=== PATIENT | male | born 1940 | race Caucasian/White ===

== ENCOUNTER 2020-03-31 12:37 | Emergency (ER) | payer MEDICARE, SELFPAY ==
--- NOTE | ~2020-03-31 | XR_ITS ---
EXAMINATION: XR abdomen/kub 1V EXAM DATE: 03/31/2020 15:20 INDICATION: Mid back pain. TECHNIQUE: Frontal projection(s) of the abdomen for interpretation. Correlation is made to CT scan sa . FINDINGS: There is expected amount of colonic stool and gas. No small bowel dilation, nonobstructiv e bowel gas pattern. There are no suspicious calcifications identified. There is no organomegaly suspected. There are bony degenerative changes. IMPRESSION: Unremarkable abdomen x-ray exam. Reviewed, dictated and finalized at location A.
--- NOTE | ~2020-03-31 | CT_ITS ---
EXAMINATION: CT abdomen pelvis wo con EXAM DATE: 03/31/2020 15:12 INDICATION: Low back pain, history kidney stones. TECHNIQUE: Spiral CT of the abdomen and pelvis was performed without contrast. Axial, coronal and sag ittal images were reviewed. The dose-length product (DLP) for this examination was 617.20 mGy-cm. T he exposure was tailored according to patient size (auto mA exposure control), and iterative reconstr uction (ASIR) was used as additional dose reduction technique. Comparison is made to prior examinatio n from 04/14/2018. FINDINGS: Possible surgical changes lower pole of the right kidney. There is bilateral renal atrophy. Probable small right nephrolithiasis. No ureteral stones or hydronephrosis. There are scattered bila teral renal cysts and hemorrhagic cysts again noted, largest in lower pole of left kidney 6.5 cm. The re is moderate prostatomegaly. The bladder is unremarkable. The liver, spleen, adrenal glands and pancreas are unremarkable. There are 2 gallstones within an otherwise unremarkable gallbladder. No evidence of obstructive biliary disease. There is no retroperitoneal or pelvic lymphadenopathy. Th ere is mild to moderate scattered arteriosclerotic disease. There are small bilateral inguinal hernia s. The appendix is normal. The stomach and small bowel are unremarkable. There is moderate descending a nd sigmoid colonic diverticulosis. There is no adjacent inflammatory change to suggest diverticuliti s. No free intraperitoneal gas. The heart is normal in size. There are no pericardial or pleural effusions. Bibasilar subsegmental atelectasis. There are no osteoblastic or osteolytic lesions iden tified. IMPRESSION: 1. No acute intra-abdominal findings. 2. Colonic diverticulosis. 3. Moderate prostatomegaly. 4. Small inguinal hernias. 5. Cholelithiasis. 6. Possible small right nephrolithiasis. Reviewed, dictated and finalized at location A.
[2020-03-31 12:46] VITALS: BP 140/71; PULSE 84; RESP 18; TEMP 36.7; O2SAT 99
--- NOTE | 2020-03-31 12:53 | ED.GENADULT ---
HPI - General Adult General Chief complaint: Back Pain/Injury Stated complaint: LOWER BACK PAIN Time Seen by Provider: 03/31/20 12:53 Source: patient and family (daughter) Mode of arrival: ambulatory Limitations: no limitations History of Present Illness HPI narrative: 79-year-old patient with complaint of left lower back pain that started approximately 2 days ago and became quite painful this morning. He denies any history of injury. He does have a history of kidney stones on both sides, and history of renal cancer on right. He denies any urinary symptoms, or fever. Related Data Allergies Allergy/AdvReac Type Severity Reaction Status Date / Time latex Allergy Unknown Verified 04/30/17 20:54 levofloxacin Allergy Unknown Verified 04/30/17 20:54 Review of Systems Review of Systems: All systems reviewed & are unremarkable except as noted in HPI and below PMFSH Past Medical History Medical History (Updated 03/31/20 @ 16:07 by Felicitas Finch PA-C) Renal cancer Social History Social History (Updated 03/31/20 @ 16:04 by Felicitas Finch PA-C) Smoking status: Never smoker Alcohol intake: never Substance use: never Living arrangements: alone Exam Const: General: no acute distress and alert Orientation/consciousness: patient oriented x3 HENMT: Head: normal to inspection Resp: Effort & Inspection: normal respiratory effort Auscultation: clear to auscultation bilaterally Cardio: Rate: regular rate Rhythm: regular rhythm GI: GI Palp: Yes Soft to palpation Auscultation: normal bowel sounds : General: Yes no CVA tenderness Back/Spine/Pelvis: Other: left lower back pain to palpation Skin: General skin exam: normal color Extrem: General: normal to inspection Course Course Emergency Course: CT results reviewed with patient, there is no evidence of renal stones at this time. His labs are abnormal for urinary tract infection. We will treat with Macrobid with recommendation for follow-up UA with primary care physician for test of cure. Vital Signs Vital signs: Vital Signs Temperature 36.7 C 03/31/20 12:46 Pulse Rate 84 03/31/20 12:46 Respiratory Rate 18 03/31/20 12:46 Blood Pressure 140/71 03/31/20 12:46 Pulse Oximetry 99 03/31/20 12:46 Temperature 36.7 C 03/31/20 12:46 Pulse Rate 85 03/31/20 14:53 Respiratory Rate 18 03/31/20 14:53 Blood Pressure 128/67 03/31/20 14:53 Pulse Oximetry 96 03/31/20 14:53 Medical Decision Making Vital Signs Vital Signs: Vital Signs Temperature 36.7 C 03/31/20 12:46 Pulse Rate 84 03/31/20 12:46 Respiratory Rate 18 03/31/20 12:46 Blood Pressure 140/71 03/31/20 12:46 Pulse Oximetry 99 03/31/20 12:46 Temperature 36.7 C 03/31/20 12:46 Pulse Rate 85 03/31/20 14:53 Respiratory Rate 18 03/31/20 14:53 Blood Pressure 128/67 03/31/20 14:53 Pulse Oximetry 96 03/31/20 14:53 Lab Data Result diagrams: 03/31/20 14:04 03/31/20 14:04 Labs: Lab Results 03/31/20 03/31/20 03/31/20 Range/Units 14:04 14:04 14:31 WBC 7.8 (4.5-10.0) K/mm3 RBC 4.89 (4.6-6.20) M/mm3 Hgb 15.0 (14.0-18.0) g/dL Hct 44.9 (42.0-52.0) % MCV 91.8 (80-100) fl MCH 30.7 (26-34) pg MCHC 33.4 (32-36) g/dl RDW 13.3 (11.5-14.5) % Plt Count 181 (150-375) k/mm3 MPV 10.4 (7.4-10.4) fl Immature Gran % (Auto) 0.4 (0-0.5) % Neut % (Auto) 63.2 (45.5-73.1) % Lymph % (Auto) 24.9 (18.3-44.2) % [place] % (Auto) 6.0 (2.6-8.5) % Eos % (Auto) 4.7 H (0-4.4) % Baso % (Auto) 0.8 (0.2-1.2) % Lymph # (Auto) 1.95 (0.9-3.2) K/mm3 [place] # (Auto) 0.5 (0.1-0.6) K/mm3 Eos # (Auto) 0.4 H (0-0.3) K/mm3 Baso # (Auto) 0.1 (0.0-0.1) K/mm3 Abs Immat Gran (auto) 0.03 (0.00-0.031) K/mm3 Absolute Neuts (auto) 5.0 (1.3-6.7) K/mm3 Absolute Nucleated RBC 0.0 (0.0-0.012) K/mm3 Nucleated RBC % 0.0 (0.0-0.2) % [place]
[2020-03-31 14:13] LABS: Basophils Absolute Auto 0.1 K/mm3 (0.0-0.1); Basophils Percent Auto 0.8 % (0.2-1.2); Eosinophils Absolute Auto 0.4 K/mm3 (0-0.3); Eosinophils Percent Auto 4.7 % (0-4.4); Hematocrit 44.9 % (42.0-52.0); Immature Granulocyte Absolute 0.03 K/mm3 (0.00-0.031); Immature Granulocyte Percent A 0.4 % (0-0.5); Lymphocytes Absolute Auto 1.95 K/mm3 (0.9-3.2); Lymphocytes Percent Auto 24.9 % (18.3-44.2); Mean Corpuscular HGB Conc 33.4 g/dl (32-36); Mean Corpuscular Hemoglobin 30.7 pg (26-34); Mean Corpuscular Volume 91.8 fl (80-100); Mean Platelet Volume 10.4 fl (7.4-10.4); Monocytes Absolute Auto 0.5 K/mm3 (0.1-0.6); Neutrophils Percent Auto 63.2 % (45.5-73.1); Platelet Count Result 181 k/mm3 (150-375); Red Blood Count 4.89 M/mm3 (4.6-6.20); Red Cell Distribution Width 13.3 % (11.5-14.5); White Blood Count 7.8 K/mm3 (4.5-10.0)
[2020-03-31 14:27] LABS: Anion Gap 9 mmol/L (8-16); Blood Urea Nitrogen 21 mg/dL (9-20); Calcium 9.5 mg/dL (8.4-10.2); Carbon Dioxide 27 mmol/L (22-30); Chloride 106 mmol/L (98-107); Estimated CRCL calculation 51 ml/min; Estimated Glomerular Filt Rate 53; Glucose 99 mg/dL (75-110); Potassium 3.7 mmol/L (3.4-5.0); Sodium 142 mmol/L (137-145)
[2020-03-31 14:44] LABS: Add Urine Microscopic? YES; Appearance Urine Clear (Clear); Bacteria Urine Trace /hpf; Bilirubin Urine Negative (Negative); Color Urine Yellow (Yellow); Glucose Urine UA Negative (Negative); Ketones Urine Negative (Negative); Leukocyte Esterase Ur 2+ LEU/UL (Negative); Nitrate Urine Positive (Negative); Protein Urine Negative (Negative); Specific Grav Ur 1.013 (1.001-1.035); Squamous Epithelial Cell Urine Rare /hpf (Few); Urobilinogen Urine Negative mg/dL (<2.0); WBC Urine 31-50 /hpf
[2020-03-31 14:53] VITALS: BP 128/67; PULSE 85; RESP 18; O2SAT 96
[2020-03-31 14:54] LABS: Blood Urine Negative (Negative)
[2020-03-31 16:27] VITALS: BP 127/76; PULSE 87; RESP 18; O2SAT 98
== END 2020-03-31 16:29 | disposition home or self-care (01) ==
PROVIDERS: Physician Assistant; Emergency Provider Emergency Medicine; PCP Internal Medicine
DX: N39.0 Urinary tract infection, site not specified (principal); Z85.528 Personal history of other malignant neoplasm of kidney
CPT/HCPCS: 36415; 74018; 74176; 80048; 81001; 85025; 87077; 87086; 87088; 87186; 99284

== ENCOUNTER 2020-06-18 16:26 | Outpatient (CLI) | payer MEDICARE, SELFPAY ==
--- NOTE | ~2020-06-18 | XR_ITS ---
EXAMINATION: XR chest 2V DATE: 06/18/2020 16:57 INDICATION: Malignant neoplasm of right kidney, except renal pelvis. TECHNIQUE: Frontal and lateral views of the chest were obtained. COMPARISON: Chest 2 views 04/19/2018, CT abdomen and pelvis 06/18/2020 FINDINGS: There is mild atelectasis in the lower lung zones. No pleural effusion or pneumothorax. The heart size is normal. There are surgical clips in right axilla and in the neck. IMPRESSION: 1. No evidence of metastatic disease. Reviewed, dictated and finalized at location A.
--- NOTE | ~2020-06-18 | CT_ITS ---
EXAMINATION: CT abdomen pelvis wo con DATE: 06/18/2020 16:52 INDICATION: History of renal cell carcinoma. Status post partial nephrectomy. TECHNIQUE: Computed tomography (CT) of the abdomen and pelvis was performed without intravenous contr ast. The dose-length product was 1323.09 mGy-cm. Automated exposure control and iterative reconstruct ion technique were employed. COMPARISON: Comparison to multiple prior studies sequentially, with oldest reviewed study dated 10/2016. . FINDINGS: There is chronic right lower lobe atelectasis/scarring. Borderline heart size. No pulmonary nodules or masses. There is atherosclerosis. There are multiple bilateral renal cysts, largest in th e left kidney measuring 6.7 cm. Status post partial right nephrectomy. There are nonobstructing right renal stones. Enlarged prostate gland. The liver, spleen, pancreas, adrenal glands are unremarkable. There is atherosclerosis without aneury sm. No lymphadenopathy identified. No free air or free fluid. There is atrophy of the right lower rec tus muscles. Mild-moderate lumbar spondylosis. No osteolytic or osteoblastic lesions. IMPRESSION: 1. No evidence for residual/recurrent neoplasm post partial right nephrectomy. Multiple bilateral low -density lesions in the kidneys, most likely benign cysts, although evaluation limited without contra st. 2: Cholelithiasis. 3: Nonobstructing right nephrolithiasis. Reviewed, dictated and finalized at location A. IMPRESSION: 1. No evidence for residual/recurrent neoplasm post partial right nephrectomy. Multiple bilateral low-density lesions in the kidneys, most likely benign cysts , although evaluation limited without contrast. 2: Cholelithiasis. 3: Nonobstructing right nephrolithiasis.
== END 2020-06-18 16:27 | disposition home or self-care (01) ==
PROVIDERS: PCP Internal Medicine; Visit Provider Nurse Practitioner Adult Health
DX: C64.1 Malignant neoplasm of right kidney, except renal pelvis (principal); K80.20 Calculus of gallbladder without cholecystitis without obstruction; N20.0 Calculus of kidney
CPT/HCPCS: 71046; 74176

== ENCOUNTER 2021-10-03 13:53 | Outpatient (CLI) | payer MEDICARE, SELFPAY ==
--- NOTE | ~2021-10-03 | US_ITS ---
EXAMINATION: US arterial ankle brachial ind DATE: 10/03/2021 14:57 INDICATION: Bilateral lower extremity pain TECHNIQUE: Segmental pressures and plethysmographic and Doppler waveforms of the brachial and lower e xtremity arteries were obtained. COMPARISON: None. FINDINGS: Left brachial artery pressure of 132 mm Hg (The technologist did not perform the right brachial arter y measurement.). The right ankle-brachial index (DAVID) is 1.14 (normal >= 0.9-1.0). The right great toe-brachial index (TBI) is 0.92 (normal >= 0.65). Arterial Doppler waveforms are biphasic at the right posterior tibial artery and triphasic at the right dorsalis pedis artery. The left DAVID is 1.19. The left TBI is 0.95. Arterial Doppler waveforms are triphasic. IMPRESSION: Normal DAVID and TBI bilaterally Reviewed, dictated and finalized at Location A. Reviewed, dictated and finalized at location A. [facility] [employer]
== END 2021-10-03 13:54 | disposition home or self-care (01) ==
PROVIDERS: PCP Internal Medicine; Visit Provider Internal Medicine
DX: M79.604 Pain in right leg (principal); M79.605 Pain in left leg; Z51.81 Encounter for therapeutic drug level monitoring; Z79.899 Other long term (current) drug therapy; M79.662 Pain in left lower leg; M79.661 Pain in right lower leg
CPT/HCPCS: 93922

== ENCOUNTER 2021-12-02 09:57 | Emergency (ER) | payer MEDICARE, SELFPAY ==
--- NOTE | ~2021-12-02 | CT_ITS ---
EXAMINATION: CT abdomen pelvis w con INDICATION: Right flank pain, elevated lipase, history of kidney and breast cancer TECHNIQUE: Computed tomographic images of the abdomen and pelvis were obtained after the administrati on of 100 cc of Omnipaque 350 intravenous contrast. The dose-length product (DLP) was 1542.72 mGy-cm. Automated exposure control and iterative reconstruction technique were employed. COMPARISON: 06/18/2020 FINDINGS: Minimal dependent atelectasis is present in the lung bases. The heart size is normal. Stone s are present in the nondistended gallbladder. The liver, spleen, pancreas, and adrenal glands are no rmal. Cysts of the kidneys measure up to 7.5 cm on the left. Nonobstructing stones of the right kidne y measure up to 5 mm. There are no stones of the ureters or bladder. There is no hydronephrosis or hy droureter. There is calcified atherosclerosis of the aorta and many of the other arteries. No patholo gically enlarged abdominal or pelvic lymph nodes are identified. There is no free intraperitoneal gas or evidence of bowel obstruction. The appendix is normal. There are fat-containing inguinal hernias. Colonic diverticulosis is present without evidence of diverticulitis. There is severe lumbar spondyl osis. IMPRESSION: 1. Nonobstructing right nephrolithiasis. 2. Cholelithiasis without evidence of cholecystitis. Reviewed, dictated and finalized at location A.
[2021-12-02 11:17] VITALS: BP 151/75; PULSE 75; RESP 20; TEMP 37; O2SAT 100
[2021-12-02 12:16] LABS: Appearance Urine Clear (Clear); Bilirubin Urine Negative (Negative); Color Urine Yellow (Yellow); Glucose Urine UA Negative (Negative); Ketones Urine Negative (Negative); Leukocyte Esterase Ur Negative LEU/UL (Negative); Nitrate Urine Negative (Negative); Protein Urine Negative (Negative); Urobilinogen Urine 0.2 mg/dL (<2.0)
[2021-12-02 12:26] LABS: Squamous Epithelial Cell Urine Rare /hpf (Few); WBC Urine 0-3 /hpf
--- NOTE | 2021-12-02 12:35 | ED.BACK ---
HPI - Back Pain/Injury General Chief Complaint: Back Pain/Injury Stated Complaint: back pain Time Seen by Provider: 12/02/21 12:00 Source: patient and RN notes reviewed Mode of arrival: ambulatory Limitations: no limitations History of Present Illness HPI Narrative: This is an 81 year old male who presents for evaluation of right flank pain. He has been having intermittent sharp pain for 1 week. His pain is located right mid back . He states he will have sharp pain that is short duration and it will occur every 5 minutes. He denies having pain currently, and he last had pain in the waiting room. He states he is unsure if his pain is due to kidney stone or UTI. He reports history of renal cancer and kidney stones, but his pain feels different. He denies associated nausea, vomiting, fever, chills, hematuria, urinary frequency or dysuria. He has been taking Tylenol every 8 hours for his pain. He denies leg weakness, numbness or tingling. Related Data Allergies Allergy/AdvReac Type Severity Reaction Status Date / Time latex Allergy Unknown Verified 04/30/17 20:54 levofloxacin Allergy Unknown Verified 04/30/17 20:54 Review of Systems Review of Systems: All systems reviewed & are unremarkable except as noted in HPI and below PMFSH Past Medical History Medical History (Updated 12/02/21 @ 14:55 by Michelle Verma MD) Breast cancer, male Kidney stone Renal cancer Surgical History Surgical History (Updated 12/02/21 @ 12:38 by Michelle Verma MD) H/O mastectomy H/O partial nephrectomy Social History Social History (Updated 03/31/20 @ 16:04 by Felicitas Finch PA-C) Smoking status: Never smoker Alcohol intake: never Substance use: never Exam Const: General: no acute distress and alert Orientation/consciousness: patient oriented x3 HENMT: Head: normocephalic and atraumatic Eyes: EOM: EOMs intact bilaterally Chest: Chest palpation & inspection: normal inspection of the chest Resp: Effort & Inspection: normal respiratory effort and no retractions Auscultation: clear to auscultation bilaterally Cardio: Rate: regular rate Rhythm: regular rhythm Heart sounds: no murmurs GI: GI Palp: Yes Soft to palpation, No Tenderness to palpation present (GI), No Guarding due to palpation present (GI), No Rigid due to palpation and No Hernia present Auscultation: normal bowel sounds Back/Spine/Pelvis: Back: no CVA tenderness Skin: General skin exam: normal color Rashes: no rashes Neuro: General: patient oriented x3 and moves all extremities Extrem: General: normal to inspection Psych: Mental Status: mental status grossly normal Affect: normal affect Course Reevaluation(s) Reevaluation #1: I discussed CT with patient. no pancreatitis on CT and he is not having any pain. He will be discharged with follow up with PCP Date: 12/02/21 Time: 14:53 Vital Signs Vital signs: Vital Signs Temperature 98.6 F 12/02/21 11:17 Pulse Rate 75 12/02/21 11:17 Respiratory Rate 20 12/02/21 11:17 Blood Pressure 151/75 H 12/02/21 11:17 Pulse Oximetry 100 12/02/21 11:17 Temperature 98.9 F 12/02/21 14:24 Pulse Rate 78 12/02/21 15:05 Respiratory Rate 18 12/02/21 15:05 Blood Pressure 142/98 H 12/02/21 15:05 Pulse Oximetry 98 12/02/21 15:05 MDM - Back Pain/Injury Medical Records Attestation: I reviewed the patient's medical records. Lab Data Attestation: I reviewed the patient's lab results. Result diagrams: 12/02/21 12:37 12/02/21 12:37 Labs: Lab Results 12/02/21 12/02/21 12/02/21 Range/Units 12:03 12:37 12:37 WBC 7.9 (4.5-10.0) K/mm3 RBC 4.84 (4.6-6.20) M/mm3 Hgb 15.1 (14.0-18.0) g/dL Hct 46.6 (42.0-52.0) % MCV 96.3 (80-100) fl MCH 31.2 (26-34) pg MCHC 32.4 (32-36) g/dl RDW 13.9 (11.5-14.5) % Plt Count 160 (150-375) k/mm3 MPV 9.7 (7.4-10.4) fl Immature Gran % (Auto) 0.5 (0-0.5) %
[2021-12-02 12:40] LABS: Add Urine Microscopic? YES; Blood Urine Trace-Intact (Negative)
[2021-12-02 12:44] LABS: Basophils Absolute Auto 0.1 K/mm3 (0.0-0.1); Basophils Percent Auto 1.4 % (0.2-1.2); Eosinophils Absolute Auto 0.2 K/mm3 (0-0.3); Eosinophils Percent Auto 2.5 % (0-4.4); Hematocrit 46.6 % (42.0-52.0); Hemoglobin 15.1 g/dL (14.0-18.0); Immature Granulocyte Absolute 0.04 K/mm3 (0.00-0.031); Immature Granulocyte Percent A 0.5 % (0-0.5); Lymphocytes Percent Auto 20.3 % (18.3-44.2); Mean Corpuscular HGB Conc 32.4 g/dl (32-36); Mean Corpuscular Hemoglobin 31.2 pg (26-34); Mean Corpuscular Volume 96.3 fl (80-100); Mean Platelet Volume 9.7 fl (7.4-10.4); Monocytes Absolute Auto 0.5 K/mm3 (0.1-0.6); Monocytes Percent Auto 6.5 % (2.6-8.5); Neutrophils Absolute Auto 5.4 K/mm3 (1.3-6.7); Neutrophils Percent Auto 68.8 % (45.5-73.1); Platelet Count Result 160 k/mm3 (150-375); Red Blood Count 4.84 M/mm3 (4.6-6.20); Red Cell Distribution Width 13.9 % (11.5-14.5); White Blood Count 7.9 K/mm3 (4.5-10.0)
[2021-12-02 12:56] LABS: Alanine Aminotransferase 49 U/L (4-50); Albumin Level 4.8 g/dL (3.5-5.1); Alkaline Phosphatase 54 U/L (38-126); Anion Gap 13 mmol/L (8-16); Aspartate Amino Transferase 101 U/L (17-59); Bilirubin,Total 0.5 mg/dL (0.2-1.3); Blood Urea Nitrogen 19 mg/dL (9-20); Calcium 9.8 mg/dL (8.4-10.2); Carbon Dioxide 25 mmol/L (22-30); Chloride 105 mmol/L (98-107); Estimated CRCL calculation 54 ml/min; Estimated Glomerular Filt Rate > 60; Glucose 137 mg/dL (65-110); Lipase 969 U/L (23-300); Potassium 3.6 mmol/L (3.4-5.0); Sodium 143 mmol/L (137-145)
--- NOTE | 2021-12-02 13:45 | PC.NURSE ---
PT to CT Via stretcher.
[2021-12-02 14:24] VITALS: BP 132/69; PULSE 82; RESP 18; TEMP 37.2; O2SAT 97
[2021-12-02 15:05] VITALS: BP 142/98; PULSE 78; RESP 18; O2SAT 98
== END 2021-12-02 15:05 | disposition home or self-care (01) ==
PROVIDERS: Emergency Medicine; Emergency Provider General Practice; PCP Internal Medicine
DX: N20.0 Calculus of kidney (principal); K80.20 Calculus of gallbladder without cholecystitis without obstruction; Z85.3 Personal history of malignant neoplasm of breast; Z85.528 Personal history of other malignant neoplasm of kidney; Z87.442 Personal history of urinary calculi; Z90.5 Acquired absence of kidney; Z90.10 Acquired absence of unspecified breast and nipple
CPT/HCPCS: 36415; 74177; 80053; 81001; 83690; 85025; 99284; Q9967

== ENCOUNTER 2025-01-30 11:20 | Outpatient (CLI) | payer MEDICARE, SELFPAY ==
--- NOTE | ~2025-01-30 | XR_ITS ---
XR toe 1st RT min 2V Ordering provider: Sherman Garcia, History: . PAIN IN RT TOE 1 WEEK . Comparison: None. FINDINGS: BONES: No acute fracture or dislocation. JOINT SPACES: Mild osteoarthritic changes of the first metatarsophalangeal joint and interphalangeal joint. SOFT TISSUES: Normal. IMPRESSION: No acute osseous abnormality. 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 Reviewed, dictated and finalized at location A. IMPRESSION: No acute osseous abnormality. Osteoarthritic changes of the first metatarsophalangeal joint and interphalange al joint.
--- OUTSIDE RECORDS SUMMARY | 2025-01-30 12:58 | XMS_ITS | Clinical Summary ---
Author Organization [facility] Thelma hernandez Address [address], [place] [address] Phone Care Team Providers Care Flask Cleaner Name Role Phone Unavailable Primary Care Provider Unavailabl e Medications triamterene-hydr oCHLOROthiazide (MAXZIDE-25) 37.5-25 MG per tablet 1 daily 0 03/26/2017 Active amLODIPine (NORVASC) 10 MG tablet 1 daily 0 03/26/2017 Active levothyroxine (SYNTHROID, LEVOTHROID) 125 MCG tablet 1 daily 0 03/26/2017 Active tamsulosin (FLOMAX) 0.4 MG 24 hr capsule 1 daily 0 03/26/2017 Activ e sulfamethoxazole -trimethoprim (BACTRIM DS) 800-160 MG per tablet 1 bid 0 03/26/2017 Active enalapril (VASOTEC) 20 MG tablet 1 bid 0 03/26/2017 Active lovastatin (MEVACOR) 40 MG tablet 1 daily 0 03/26/2017 Active finasteride (PROSCAR) 5 MG tablet 1 daily 0 03/26/2017 Active Active Problems Problem Noted Date Diagnosed Date Acute kidney failure 03/30/2017 Essential (primary) hypertension 03/30/2017 Calculus of kidney 03/30/2017 Family History Medical History Relation Comments Malignant neoplastic disease Father Malignant neoplastic disease Mother Kidney disease Neg Hx Kidney stone Neg Hx Relation Status Comments Father Mother Social History Tobacco Use Types Packs/Day Years Used Date Smoking Tobacco: Never Alcohol Use Standard Drinks/Week Comments No 0 (1 standard drink = 0.6 oz pur e alcohol) Sex and Gender Information Value Date Recorded Sex Assigned at Not on file Legal Sex Male 9:38 AM MST Gender Identity Not on file Sexual Orientation Not on file Last Filed Vital Signs Vital Sign Reading Time Taken Comments Blood Pressure 120/64 03/30/2017 12:01 AM CDT Pulse 84 03/30/2017 12:01 AM CDT Temperature - - Respiratory Rate - - Oxygen Saturation - - Inhaled Oxygen Concentration - - Weight 110 kg (242 lb) 03/30/2017 12:01 AM CDT Height 172.7 cm (5' 8) 03/30/2017 12:01 AM CDT Body Mass Index 36.8 03/30/2017 12:01 AM CDT Plan of Treatment Not on file
--- OUTSIDE RECORDS SUMMARY | 2025-01-30 12:58 | XMS_ITS | CONTINUITY OF CARE DOCUMENT ---
Author Name jaquelinejaqueline Address Unknown Organization [facility] Address [address] [place] [address] Phone [phone] Care Team Providers Care Wool Washer Feeder Name Role Phone Amanda CALIX, Alberto Unavailable NIDHI CALIX, PRATIMA Unavailable SANDRINE CALIX, SHINE Brady Unavailable INSURANCE PROVIDERS Payer name Policy type / Coverage type [employer] party ID U[employer] MEDICARE COMPLETE POS HMO Other [id number]
--- OUTSIDE RECORDS SUMMARY | 2025-01-30 12:58 | XMS_ITS | Data Portability ---
[facility] [address] [facility] [place] [address] Care Team Providers Care Pad Tufter Name Role Phone SHINE GARCIA Primary Care Provider Assessment Encounter Date Assessment Date Assessment LastModified by Organization Details LastModified Time 12/03/2023 12/03/2023 Problems and the assessment and plan have been discussed one by one clinically his problems appear to be stable he says he does have a work not too recently had previous clinic so we will get those records I will see him back in 4 months continue current therapy he is not sure of all immunizations and screenings but we will have the chart reviewed when it comes over all questions answered to patient's satisfaction see me in 4 months [email or web address] Not available 12/21/2023 21:11:55 03/31/2024 03/31/2024 continue current therapy blood work has been ordered healthy lifestyle care instructions have been explained follow up in 4 months Not available 04/10/2024 15:30:19 08/04/2024 08/04/2024 healthy lifestyle care instructions try to lose a little bit of weight. blood work will be ascertained . He will follow up in 4 months [email or web address] Not available 08/29/2024 21:21:43 12/08/2024 12/08/2024 Overall he has been doing fine healthy lifestyle care instructions continue current therapy diagnosis have been discussed medications have been discussed follow up with me in 4 months [email or web address] Not available 12/10/2024 22:45:46 Plan of Treatment Reminders Order Date Submit Date Provider Last Modified By Organization Details Last Modified Time Details Appointments ANY 15 2024 10:30A M Shine Garcia MD Not available Not available Not available ANY 15 2024 10:30A Sathya Garcia MD Not available Not available Not available Lab unlisted lab - T4, free 2023 024 FELIX Avendano, [address], [place], [address], 09/06/2024 07:07:38 T3, free, serum or plasma 2023 024 FELIX Avendano, [address], [place], [address], 09/06/2024 07:07:43 TSH, ultra-sen sitive, serum 2023 024 FELIXOSVALDO Avendano, [address], [place], [address], 09/06/2024 07:07:40 lipid panel, serum 2023 024 FELIX Avendano, [address], [place], [address], 09/06/2024 07:07:36 CMP, serum or plasma 2023 024 FELIXOSVALDO Avendano, [address], [place], [address], 09/06/2024 07:07:39 CBC w/ auto diff 2023 024 FELIX Avendano, [address], [place], [address], 09/06/2024 07:07:41 PSA, total, serum or plasma 2023 024 FELIX Avendano, [address], [place], [address], 03/31/2024 20:56:16 HbA1c (hemoglob in A1c), blood 2023 024 [email or web address] [facility], [address], [place], [address], 04/21/2024 14:51:50 CBC w/ auto diff 2023 [facility], [address], [place], [address], 03/31/2024 20:56:16 lipid panel, serum 2023 024 [facility], [address], [place], [address], 03/31/2024 20:56:16 CMP, serum or plasma 2023 [facility], [address], [place], [address], 03/31/2024 20:56:16 unlisted lab - T4, free 2023 [email or web address], [address], [place], [address], 04/21/2024 14:51:50 T3, free, serum or plasma 2023 [email or web address], [address], [place], [address], 04/21/2024 14:51:50 TSH, ultra-sen sitive, serum 2023 [email or web address], [address], [place], [address], 04/21/2024 14:51:50 Referral None recorded. Procedures None recorded. Surgeries None recorded. Imaging None recorded. Medication Orders None recorded. Patient TargetsNo targets recorded. 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 1 potas sium Not Available Not Available 12/26/2024 18:21:11 03/31/20 24 03/31/2024 Compr ehens peter metab olic 2000 panel - Serum or Plasm a chloride text: 98-107 high chlor lydia Not Available Not Available 12/26/2024 18:21:11 03/31/20 24 03/31/2024 Compr ehens peter metab olic 2000 panel - Serum or Plasm a carbon dioxide text: 22-30 carbo n dioxi de Not Available Not Available 12/26/2024 18:21:11 03/31/20 24 03/31/2024 Compr ehens peter metab olic 2000 panel - Serum or Plasm a anion gap text: 14-22 low anion gap Not Available Not Available 12/26/2024 18:21:11 03/31/20 24 03/31/2024 Compr ehens peter metab olic 2000 panel - Serum or Plasm a glucose text: 70-99 gluco se Not Available Not Available 12/26/2024 18:21:11 03/31/20 24 03/31/2024 Compr ehens peter metab olic 2000 panel - Serum or Plasm a BUN text: 8-19 high BUN Not Available Not Available 12/26/2024 18:21:11 03/31/20 24 03/31/2024 Compr ehens peter metab olic 2000 panel - Serum or Plasm a creatinine text: 0.66-1 .25 creat inine Not Available Not Available 12/26/2024 18:21:11 03/31/20 24 03/31/2024 Compr ehens peter metab olic 2000 panel - Serum or Plasm a GFR >60 GFR Not Available Not Availa ble 12/26/2024 18:21:11 03/31/20 24 03/31/2024 Compr ehens peter metab olic 2000 panel - Serum or Plasm a alkaline phosphatase text: 38-126 alkal ine phosp hatas e Not Available Not Available 12/26/2024 18:21:11 03/31/20 24 03/31/2024 Compr ehens peter metab olic 2000 panel - Serum or Plasm a alanine aminotransfe rase text: 0-50 padmini ne amino trans feras e Not Available Not Available 12/26/2024 18:21:11 03/31/20 24 03/31/2024 Compr ehens peter metab olic 2000 panel - Serum or Plasm a aspartate aminotransfe rase text: 15-46 high aspar quigley amino trans feras e Not Available Not Available 12/26/2024 18:21:11 03/31/20 24 03/31/2024 Compr ehens peter metab olic 2000 panel - Serum or Plasm a bilirubin, total text: 0.20-1 .30 bilir ubin, total Not Available Not Available 12/26/2024 18:21:11 03/31/20 24 03/31/2024 Compr ehens peter metab olic 2000 panel - Serum or Plasm a calcium text: 8.4-10 .2 calci um Not Available Not Available 12/26/2024 18:21:11 03/31/20 24 03/31/2024 Compr ehens peter metab olic 2000 panel - Serum or Plasm a total protein text: 6.3-8. 2 total prote in Not Available Not Available 12/26/2024 18:21:11 03/31/20 24 03/31/2024 Compr ehens peter metab olic 2000 panel - Serum or Plasm a albumin text: 3.0-4. 4 album in Not Available Not Available 12/26/2024 18:21:11 03/31/20 24 03/31/2024 Compr ehens peter metab olic 1999 panel - Serum or Plasm a globulin text: 2.6-4. 2 globu juliette Not Available Not Available 12/26/2024 18:21:11 03/31/20 24 03/31/2024 Compr ehens peter metab olic 2000 panel - Serum or Plasm a A/G ratio text: 1.0-2. 0 A/G ratio Not Available Not Available 12/26/2024 18:21:11 03/31/20 24 03/31/2024 Lipid 1995 panel - Serum or Plasm a cholesterol text: 140-19 9 emelina stero l Not Available Not Available 12/26/2024 18:21:11 03/31/20 24 03/31/2024 Lipid 1995 panel - Serum or Plasm a triglyceride s text: 0-150 high trigl yceri bulmaro Not Available Not Available 12/26/2024 18:21:11 03/31/20 24 03/31/2024 Lipid 1996 panel - Serum or Plasm a HDL cholesterol text: 40- low HDL emelina stero l Not Available Not Available 12/26/2024 18:21:11 03/31/20 24 03/31/2024 Lipid 1996 panel - Serum or Plasm a LDL cholesterol, calculated text: 0-130 LDL emelina stero l, calcu lated Not Available Not Available 12/26/2024 18:21:11 03/31/20 24 03/31/2024 Hemog lobin A1c/H emogl obin. total in Blood by HPLC hemoglobin A1C/hemoglob in.total in blood text: 4.0-6. 0 HA1C Not Available Not Available 12/26/2024 18:21:11 03/31/20 24 03/31/2024 Prost ate speci fic Ag [Mass /volu me] in Serum or Plasm a PSA medicare screen text: 0.00-4 .00 PSA medic are scree n Not Available Not Available 12/26/2024 18:21:11 03/31/20 24 03/31/2024 Thyro tropi n [Unit s/vol ume] in Serum or Plasm a thyroid-stim ulating hormone text: 0.465- 4.680 thyro id-st imula ting hormo ne Not Available Not Available 12/26/2024 18:21:11 03/31/20 24 03/31/2024 Triio dothy finn e (T3) Free [Mass /volu me] in Serum or Plasm a free T3 text: 2.77-5 .27 low free T3 Not Available Not Available 12/26/2024 18:21:11 03/31/20 24 03/31/2024 Thyro xine (T4) free [Mass /volu me] in Serum or Plasm a free T4 text: 0.78-2 .19 free T4 Not Available Not Available 12/26/2024 18:21:11 03/31/20 24 03/31/2024 CBC W Auto Diffe renti al panel - Blood white blood cells text: 4.2-10 .8 white blood cells Not Available Not Available 12/26/2024 18:21:10 03/31/20 24 03/31/2024 CBC W Auto Diffe renti al panel - Blood red blood cells text: 4.10-5 .80 red blood cells Not Available Not Available 12/26/2024 18:21:10 03/31/20 24 03/31/2024 CBC W Auto Diffe renti al panel - Blood hemoglobin text: 13.2-1 7.0 hemog lobin Not Available Not Available 12/26/2024 18:21:10 03/31/20 24 03/31/2024 CBC W Auto Diffe renti al panel - Blood hematocrit text: 39.3-5 0.0 hemat ocrit Not Available Not Available 12/26/2024 18:21:10 03/31/20 24 03/31/2024 CBC W Auto Diffe renti al panel - Blood mean red cell volume text: 80.0-9 7.0 mean red cell volum e Not Available Not Available 12/26/2024 18:21:10 03/31/20 24 03/31/2024 CBC W Auto Diffe renti al panel - Blood mean red cell hemoglobin text: 27.0-3 3.0 mean red cell hemog lobin Not Available Not Available 12/26/2024 18:21:10 03/31/20 24 03/31/2024 CBC W Auto Diffe renti al panel - Blood mean RBC HGB concentratio n text: 31.0-3 6.0 mean RBC HGB leopoldo ntrat ion Not Available Not Available 12/26/2024 18:21:10 03/31/20 24 03/31/2024 CBC W Auto Diffe renti al panel - Blood red cell distribution width text: 11.8-1 5.5 red cell distr ibuti on width Not Available Not Available 12/26/2024 18:21:10 03/31/20 24 03/31/2024 CBC W Auto Diffe renti al panel - Blood platelets text: 150-40 0 plate lets Not Available Not Available 12/26/2024 18:21:10 03/31/20 24 03/31/2024 CBC W Auto Diffe renti al panel - Blood mean platelet volume text: 9.0-12 .4 mean plate let volum e Not Available Not Available 12/26/2024 18:21:10 03/31/20 24 03/31/2024 CBC W Auto Diffe renti al panel - Blood neutrophils text: 39.0-7 2.0 neutr ophil s Not Available Not Available 12/26/2024 18:21:10 03/31/20 24 03/31/2024 CBC W Auto Diffe renti al panel - Blood lymphocytes text: 16.0-4 7.0 lymph ocyte s Not Available Not Available 12/26/2024 18:21:10 03/31/20 24 03/31/2024 CBC W Auto Diffe renti al panel - Blood monocytes text: 5.0-12 .0 monoc ytes Not Available Not Available 12/26/2024 18:21:10 03/31/20 24 03/31/2024 CBC W Auto Diffe renti al panel - Blood eosinophils text: 1.0-7. 0 eosin ophil s Not Available Not Available 12/26/2024 18:21:10 03/31/20 24 03/31/2024 CBC W Auto Diffe renti al panel - Blood basophils text: 0.0-2. 0 basop hils Not Available Not Available 12/26/2024 18:21:10 03/31/20 24 03/31/2024 CBC W Auto Diffe renti al panel - Blood immature granulocytes text: 0.00-0 .50 high immat ure granu locyt es Not Available Not Available 12/26/2024 18:21:10 03/31/20 24 03/31/2024 CBC W Auto Diffe renti al panel - Blood neutrophils, absolute count text: 1.5-8. 0 neutr ophil s, absol ced count Not Available Not Available 12/26/2024 18:21:10 03/31/20 24 03/31/2024 CBC W Auto Diffe renti al panel - Blood lymphocytes, absolute count text: 1.07-3 .43 lymph ocyte s, absol ced count Not Available Not Available 12/26/2024 18:21:10 03/31/20 24 03/31/2024 CBC W Auto Diffe renti al panel - Blood monocytes, absolute count text: 0.29-0 .99 monoc ytes, absol ced count Not Available Not Available 12/26/2024 18:21:10 03/31/20 24 03/31/2024 CBC W Auto Diffe renti al panel - Blood eosinophils, absolute count text: 0.02-0 .53 eosin ophil s, absol ced count Not Available Not Available 12/26/2024 18:21:10 03/31/20 24 03/31/2024 CBC W Auto Diffe renti al panel - Blood basophils, absolute count text: 0.01-0 .08 high basop hils, absol ced count Not Available Not Available 12/26/2024 18:21:10 03/31/20 24 03/31/2024 CBC W Auto Diffe renti al panel - Blood immature granulocytes ,absolute text: 0.00-0 .05 high immat ure granu locyt es,ab solut e Not Available Not Available 12/26/2024 18:21:10 03/31/20 24 03/31/2024 CBC W Auto Diffe renti al panel - Blood nucleated red blood cells text: -0 nucle ated red blood cells Not Available Not Available 12/26/2024 18:21:10 03/31/20 24 03/31/2024 CBC W Auto Diffe renti al panel - Blood NRBC# NRBC# Not Available Not Availa ble 12/26/2024 18:21:10 09/05/19 25 09/06/2024 LIPID PANEL cholesterol, total 171 mg/dL 100-19 9 Not Available [facility] ([facility]) [address], [place], [address], 09/06/2024 07:07:36 09/05/19 25 09/06/2024 LIPID PANEL triglyceride s 341 mg/dL 0-149 above high normal Not Available [facility] ([facility]) [address] [place], [address], 09/06/2024 07:07:36 09/05/19 25 09/06/2024 LIPID PANEL HDL cholesterol 25 mg/dL >39 below low normal Not Available [facility] ([facility]) [address] [place], [address], 09/06/2024 07:07:36 09/05/19 25 09/06/2024 LIPID PANEL VLDL cholesterol gina 57 mg/dL 5-40 above high normal Not Available [facility] ([facility]) [address] [place], [address], 09/06/2024 07:07:36 09/05/19 25 09/06/2024 LIPID PANEL LDL chol calc ([email or web address] 89 mg/dL 0-99 Not Available [facility] ([facility]) [address] [place], [address], 09/06/2024 07:07:36 09/05/19 25 09/06/2024 T4, FREE T4,free(dire ct) 1.20 NG/dL 0.82-1 .77 Not Available [facility] ([facility]) [address] [place], [address], 09/06/2024 07:07:38 09/05/19 25 09/06/2024 COMP. METAB OLIC PANEL (14) glucose 126 mg/dL 70-99 above high normal Not Available [facility] ([facility]) [address] [place], [address], 09/06/2024 07:07:39 09/05/19 25 09/06/2024 COMP. METAB OLIC PANEL (14) BUN 19 mg/dL 8-27 Not Available [facility] ([facility]) [address] [facility] [place], [address], 09/06/2024 07:07:39 09/05/19 25 09/06/2024 COMP. METAB OLIC PANEL (14) creatinine 1.17 mg/dL 0.76-1 .27 Not Available [facility] ([facility]) [address] [place], [address], 09/06/2024 07:07:39 09/05/19 25 09/06/2024 COMP. METAB OLIC PANEL (14) eGFR 61 mL/mi n/1.7 3 >59 Not Available [facility] ([facility]) [address] [place], [address], 09/06/2024 07:07:39 09/05/19 25 09/06/2024 COMP. METAB OLIC PANEL (14) BUN/creatini ne ratio 16 10-24 Not Available [facility] ([facility]) [address] [place], [address], 09/06/2024 07:07:39 09/05/19 25 09/06/2024 COMP. METAB OLIC PANEL (14) sodium 145 mmol/ L 134-14 4 above high normal Not Available [facility] ([facility]) [address] [place], [address], 09/06/2024 07:07:39 09/05/19 25 09/06/2024 COMP. METAB OLIC PANEL (14) potassium 3.6 mmol/ L 3.5-5. 2 Not Available [facility] ([facility]) [address] [facility] [place], [address], 09/06/2024 07:07:39 09/05/19 25 09/06/2024 COMP. METAB OLIC PANEL (14) chloride 103 mmol/ L 96-106 Not Available [facility] ([facility]) [address] [place], [address], 09/06/2024 07:07:39 09/05/19 25 09/06/2024 COMP. METAB OLIC PANEL (14) carbon dioxide, total 28 mmol/ L Not Available [facility] ([facility]) [address] [place], [address], 09/06/2024 07:07:39 09/05/19 25 09/06/2024 COMP. METAB OLIC PANEL (14) calcium 10.0 mg/dL 8.6-10 .2 Not Available [facility] ([facility]) [address] [place], [address], 09/06/2024 07:07:39 09/05/19 25 09/06/2024 COMP. METAB OLIC PANEL (14) protein, total 7.3 g/dL 6.0-8. 5 Not Available [facility] ([facility]) [address] [place], [address], 09/06/2024 07:07:39 09/05/19 25 09/06/2024 COMP. METAB OLIC PANEL (14) albumin 4.6 g/dL 3.7-4. 7 Not Available [facility] ([facility]) [address] [place], [address], 09/06/2024 07:07:39 09/05/19 25 09/06/2024 COMP. METAB OLIC PANEL (14) globulin, total 2.7 g/dL 1.5-4. 5 Not Available [facility] ([facility]) [address] [place], [address], 09/06/2024 07:07:39 09/05/19 25 09/06/2024 COMP. METAB OLIC PANEL (14) bilirubin, total 0.4 mg/dL 0.0-1. 2 Not Available [facility] ([facility]) [address] [place], [address], 09/06/2024 07:07:39 09/05/19 25 09/06/2024 COMP. METAB OLIC PANEL (14) alkaline phosphatase 61 IU/L 44-121 Not Available [facility] ([facility]) [address], [place], [address], 09/06/2024 07:07:39 09/05/19 25 09/06/2024 COMP. METAB OLIC PANEL (14) AST (SGOT) 52 IU/L 0-40 above high normal Not Available [facility] ([facility]) [address], [place], [address], 09/06/2024 07:07:39 09/05/19 25 09/06/2024 COMP. METAB OLIC PANEL (14) ALT (SGPT) 44 IU/L 0-44 Not Available [facility] ([facility]) [address], [place], [address], 09/06/2024 07:07:39 09/05/19 25 09/06/2024 TSH TSH 3.360 uIU/m L 0.450- 4.500 Not Available [facility] ([facility]) [address], [place], [address], 09/06/2024 07:07:40 09/05/19 25 09/05/2024 CBC WITH DIFFE RENTI AL/PL ATELE T WBC 6.9 x10e3 /uL 3.4-10 .8 Not Available [facility] ([facility]) [address], [place], [address], 09/06/2024 07:07:41 09/05/19 25 09/05/2024 CBC WITH DIFFE RENTI AL/PL ATELE T RBC 4.90 x10e6 /uL 4.14-5 .80 Not Available [facility] ([facility]) [address], [place], [address], 09/06/2024 07:07:41 09/05/19 25 09/05/2024 CBC WITH DIFFE RENTI AL/PL ATELE T hemoglobin 14.8 g/dL 13.0-1 7.7 Not Available [facility] ([facility]) [address], [place], [address], 09/06/2024 07:07:41 09/05/19 25 09/05/2024 CBC WITH DIFFE RENTI AL/PL ATELE T hematocrit 45.7 % 37.5-5 1.0 Not Available [facility] ([facility]) [address], [place], [address], 09/06/2024 07:07:41 09/05/1909/05/2024 CBC WITH DIFFE RENTI AL/PL ATELE T MCV 93 fL 79-97 Not Available [facility] ([facility]) [address], [place], [address], 09/06/2024 07:07:41 09/05/19 25 09/05/2024 CBC WITH DIFFE RENTI AL/PL ATELE T MCH 30.2 pg 26.6-3 3.0 Not Available [facility] ([facility]) [address] [place], [address], 09/06/2024 07:07:41 09/05/19 25 09/05/2024 CBC WITH DIFFE RENTI AL/PL ATELE T MCHC 32.4 g/dL 31.5-3 5.7 Not Available [facility] ([facility]) [address] [place], [address], 09/06/2024 07:07:41 09/05/1909/05/2024 CBC WITH DIFFE RENTI AL/PL ATELE T RDW 13.6 % 11.6-1 5.4 Not Available [facility] ([facility]) [address] [place], [address], 09/06/2024 07:07:41 09/05/19 25 09/05/2024 CBC WITH DIFFE RENTI AL/PL ATELE T platelets 189 x10e3 /uL 150-45 0 Not Available [facility] ([facility]) [address], [place], [address], 09/06/2024 07:07:41 09/05/19 25 09/05/2024 CBC WITH DIFFE RENTI AL/PL ATELE T neutrophils 59 % notest ab. Not Available [facility] ([facility]) [address] [facility], [place], [address], 09/06/2024 07:07:41 09/05/19 25 09/05/2024 CBC WITH DIFFE RENTI AL/PL ATELE T lymphs 28 % notest ab. Not Available [facility] ([facility]) [address] [facility], [place], [address], 09/06/2024 07:07:41 09/05/19 25 09/05/2024 CBC WITH DIFFE RENTI AL/PL ATELE T monocytes 8 % notest ab. Not Available [facility] ([facility]) [address], [place], [address], 09/06/2024 07:07:41 09/05/19 25 09/05/2024 CBC WITH DIFFE RENTI AL/PL ATELE T eos 3 % notest ab. Not Available [facility] ([facility]) [address], [place], [address], 09/06/2024 07:07:41 09/05/19 25 09/05/2024 CBC WITH DIFFE RENTI AL/PL ATELE T basos 1 % notest ab. Not Available [facility] ([facility]) [address], [place], [address], 09/06/2024 07:07:41 09/05/19 25 09/05/2024 CBC WITH DIFFE RENTI AL/PL ATELE T neutrophils (absolute) 4.0 x10e3 /uL 1.4-7. 0 Not Available [facility] ([facility]) [address] [facility], [place], [address], 09/06/2024 07:07:41 09/05/19 25 09/05/2024 CBC WITH DIFFE RENTI AL/PL ATELE T lymphs (absolute) 1.9 x10e3 /uL 0.7-3. 1 Not Available [facility] ([facility]) [address] [facility], [place], [address], 09/06/2024 07:07:41 09/05/19 25 09/05/2024 CBC WITH DIFFE RENTI AL/PL ATELE T monocytes(ab solute) 0.6 x10e3 /uL 0.1-0. 9 Not Available [facility] ([facility]) [address] [facility], [place], [address], 09/06/2024 07:07:41 09/05/19 25 09/05/2024 CBC WITH DIFFE RENTI AL/PL ATELE T eos (absolute) 0.2 x10e3 /uL 0.0-0. 4 Not Available [facility] ([facility]) [address] [facility], [place], [address], 09/06/2024 07:07:41 09/05/19 25 09/05/2024 CBC WITH DIFFE RENTI AL/PL ATELE T baso (absolute) 0.1 x10e3 /uL 0.0-0. 2 Not Available [facility] ([facility]) [address], [place], [address], 09/06/2024 07:07:41 09/05/19 25 09/05/2024 CBC WITH DIFFE RENTI AL/PL ATELE T immature granulocytes 1 % notest ab. Not Available [facility] ([facility]) [address] [facility], [place], [address], 09/06/2024 07:07:41 0109/05/2024 CBC WITH DIFFE RENTI AL/PL ATELE T immature grans (abs) 0.1 x10e3 /uL 0.0-0. 1 Not Available [facility] ([facility]) [address], [place], [address], 09/06/2024 07:07:41 09/05/19 25 09/06/2024 TRIIO DOTHY FINN E (T3), FREE triiodothyro nine (T3), free 2.4 pg/mL 2.0-4. 4 Not Available [facility] ([facility]) [address] [facility] [facility], [place], [address], 09/06/2024 07:07:43 09/21/19 25 09/21/2024 HEMOG LOBIN A1C hemoglobin A1C 5.7 % 4.8-5. 6 above high normal Predi abete s: 5.7 - 6.4 Diabe maría: >6.4 Glyce eusebio contr ol for adult s with diabe maría: <7.0 Not Available [facility] ([facility]) [address] [facility], [place], [address], 09/22/2024 07:08:55 Result Notes None recorded. Problems Name Problem SNOMED Code Status Onset Date Resolution Date Notes Provider Name and Address Organization Details Recorded Time Essential hypertension 30825040 Active 2023 Shine Garcia MD Attn: Demetrius lindsey,[address] [facility], [place], [address], [facility] - [facility] 21:10:14 Hyperlipidemia 23629401 Active 2023 Shine Garcia MD Attn: Demetrius lindsey,[address] [facility], [place], [address], [place] - [facility] 4 21:10:15 Hypothyroidism 65612645 Active 2023 Shine Garcia MD Attn: Demetrius lindsey,[address] [facility], [place], [address], [facility] - [facility] 21:10:16 Obstructive sleep apnea syndrome 50986786 Active 2023 Shine Garcia MD Attn: Demetrius lindsey,[address] [facility], [place], [address], [place] [facility] 4 21:10:19 Renal cell carcinoma 901391212 Active 2023 Shine Garcia MD Attn: Demetrius lindsey,[address] [facility], [place], [address], [place] [facility] 4 21:10:25 Chronic low back pain 516232197 Active 2023 Shine Garcia MD Attn: Demetrius lindsey,[address] [facility], [place], [address], [place] [facility] 4 21:10:27 History of malignant neoplasm of breast 122751611 Active 2023 Shine Garcia MD Attn: Demetrius lindsey,[address] 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, [place], [address], [place] [facility] 5 21:21:06 Problem Notes None recorded. Procedures Surgical History Date Name Laterality Status Provider Name and Address Organization Details Recorded Time Eye Surgery completed Sherri Coleman MA [facility] 12/03/2023 11:08:23 Hernia Repair completed Sherri Coleman MA [facility] 12/03/2023 11:08:32 Prostate Biopsy completed YUE Negron [facility] 12/03/2023 11:08:45 vasectomy completed Sherri Coleman MA [facility] 12/03/2023 11:08:53 Imaging Results None recorded. Procedure Notes None recorded. Medical Equipment None Reported. Allergies Allergen ID Allergen Name Allergen Category Reaction Reaction Severity Criticality Documentation Date Start Date Code Code System Note Provider Name and Address Organization Details Recorded Time 646669 levofloxa jazmyne medicatio n Not available Not available Not available 12/03/2023 64746 RxNorm Sherri Coleman MA [facility], [facility] 4 11:07:43 Medications Name Sig Start Date Stop Date Status Note LastModified by Organization Details LastModified Time cephalexin 250 mg capsule TAKE 1 CAPSULE BY MOUTH FOUR TIMES A DAY FOR 14 DAYS 08/04 completed Not Available Not Available Not Available enalapril maleate 20 mg tablet TAKE 1 TABLET BY MOUTH TWICE DAILY 2023 active Not Available Not Available Not Avai lable amlodipine 10 mg tablet TAKE 1 TABLET BY MOUTH DAILY 2023 active Not Available Not Available Not Avai lable levothyroxin e 125 mcg tablet TAKE 1 TABLET BY MOUTH DAILY 2023 active Not Available Not Available Not Avai lable triamterene 37.5 mg-hydrochlo rothiazide 25 mg tablet TAKE 1 TABLET BY MOUTH DAILY 2023 active Not Available Not Available Not Avai lable finasteride 5 mg tablet TAKE 1 TABLET BY MOUTH DAILY 2023 active Not Available Not Available Not Avai lable ezetimibe 10 mg tablet TAKE 1 TABLET BY MOUTH DAILY 2023 active Not Available Not Available Not Avai lable Vitals Date Recorded Body height Body mass index (BMI) Body weight Heart rate Oxygen saturation Oxygen saturation in Arterial blood by Pulse oximetry Systolic blood pressure Diastolic blood pressure Provider Name and Address Organization Details Last Updated DateTime 4 177.8 cm 36.2 kg/m2 782982. 28 g 87 /min 95 % 95 % 126 mm[Hg] 64 mm[Hg] Sherri Coleman MA [place] - [facility] 4 11:18:36 Date Recorded Body height Body mass index (BMI) Body weight Heart rate Oxygen saturation Oxygen saturation in Arterial blood by Pulse oximetry Systolic blood pressure Diastolic blood pressure Provider Name and Address Organization Details Last Updated DateTime 5 177.8 cm 37.9 kg/m2 325555. 74 g 96 /min 97 % 97 % 122 mm[Hg] 60 mm[Hg] Cristine De La Paz MA [place] - [facility] 5 11:03:42 Date Recorded Body height Body mass index (BMI) Body weight Heart rate Oxygen saturation Oxygen saturation in Arterial blood by Pulse oximetry Systolic blood pressure Diastolic blood pressure Provider Name and Address Organization Details Last Updated DateTime 5 177.8 cm 36.9 kg/m2 373952. 88 g 97 /min 95 % 95 % 142 mm[Hg] 70 mm[Hg] Cristine De La Paz MA [facility] 5 11:33:06 Date Recorded Body height Body mass index (BMI) Body weight Heart rate Oxygen saturation Oxygen saturation in Arterial blood by Pulse oximetry Systolic blood pressure Diastolic blood pressure Provider Name and Address Organization Details Last Updated DateTime 4 177.8 cm 36.6 kg/m2 979143. 34 g 71 /min 97 % 97 % 118 mm[Hg] 70 mm[Hg] Cristine De La Paz MA [facility] 4 11:25:49 Date Recorded Body height Heart rate Oxygen saturation Oxygen saturation in Arterial blood by Pulse oximetry Body mass index (BMI) Body weight Systolic blood pressure Diastolic blood pressure Provider Name and Address Organization Details Last Updated DateTime 4 177.8 cm 85 /min 96 % 96 % 37.5 kg/m2 164384. 4 g 126 mm[Hg] 74 mm[Hg] Daphnie Hernandez MA [facility] 4 11:04:22 Social History Question Answer Notes LastModified by Organizat ion Details LastModified Time Tobacco Smoking Status Never Smoker Sherri Coleman MA [facility] 12/03/2023 11:06:53 Do You Have An Advance Directive? Yes Information n ot available 12/03/2023 Are You Blind Or Do You Have Difficulty Seeing? No Information n ot available 12/03/2023 What Is Your Level Of Caffeine Consumption? None Information not available 12/03/2023 In The 14 Days Before Symptom Onset, Have You Had Close Contact With A Laboratory-confirm ed COVID-19 While That Case Was Ill? No Information n ot available 03/31/2024 In The 14 Days Before Symptom Onset, Have You Had Close Contact With A Person Who Is Under Investigation For COVID-19 While That Person Was Ill? No Information not available 03/31/2024 Have You Been To An Area Known To Be High Risk For COVID-19? No Information not available 03/31/2024 Are You Deaf Or Do You Have Serious Difficulty Hearing? Yes Information not available 12/03/2023 What Type Of Diet Are You Following? REGULAR Information n ot available 12/03/2023 What Was The Date Of Your Most Recent Tobacco Screening? 01/30/2025 Information not available 01/30/2025 What Is Your Relationship Status? Information not available 12/03/2023 Do You Use Your Seat Belt Or Car Seat Routinely? Yes Information not available 12/03/2023 Do You Have Smoke And Carbon Monoxide Detectors In Your Home? Yes Information not available 12/03/2023 Do You Use Sunscreen Routinely? No Information not available 12/03/2023 Has Tobacco Cessation Counseling Been Provided? No Information not available 12/03/2023 Sex: Male Functional Status Question Answer Note LastModified by Organizat ion Details LastModified Time Do you use any illicit or recreational drugs? No Information not available 12/03/2023 Do you or have you ever used any other forms of tobacco or nicotine? No Information not available 12/03/2023 What is your level of alcohol consumption? None Information not available 12/03/2023 Are you currently employed? No Information not available 12/03/2023 Are you able to care for yourself? Yes Information not available 12/03/2023 What is your exercise level? None Information not available 12/03/2023 Mental Status Question Answer Note LastModified by Organization D etails LastModified Time Do you feel stressed (tense, restless, nervous, or anxious, or unable to sleep at night)? [id number] Information not available 12/03/2023 Family History Relationship Description Onset Age of this Age Resolved Age Notes LastModified by Organization Details LastModified Time Father Malignant tumor of breast bandersonma Not available 11/22 11:06:33 Mother Malignant tumor of breast bandersonma Not available 11/22 11:06:33 Sister Malignant tumor of breast bandersonma Not available 11/22 11:06:33 Medical History Condition Response Coronary Artery Disease N Other N High Blood Pressure Y Atrial Fibrillation N Kidney or Bladder Problems Y Thyroid Problems Y GI Problems N Depression N COPD N Blood Clots N Skin Problems Y Anemia N Heart Attack ([place]) N Anxiety Disorder N Diabetes N Muscle, Joint, or Bone Problems N Seizures/Epilepsy N Acid Reflux (GERD) N Cancer Y Stroke N Asthma N Allergies N High Cholesterol Y Hepatitis N Liver Disease N Headaches N Heart Failure N Osteoporosis N Immunizations Vaccine Type Date Status Note Provider Nam e and Address Organization Details Recorded Time Influenza, high-dose, quadrivalent, PF 1 completed YUE [place], [place] - [facility] 08/04/2024 11:30:21 Influenza, high-dose, quadrivalent, PF 2 [place] [facility] 08/04/2024 11:30:21 Influenza, high-dose, quadrivalent, PF 3 [place] [facility] 08/04/2024 11:30:21 COVID-19, mRNA, LNP-S, PF, 100 mcg/0.5mL dose or 50 mcg/0.25mL dose 1 [place]UE [place] [facility] 08/04/2024 11:30:21 COVID-19, mRNA, LNP-S, PF, 100 mcg/0.5mL dose or 50 mcg/0.25mL dose 1 [place]UE [place] [facility] 08/04/2024 11:30:21 COVID-19, mRNA, LNP-S, PF, 100 mcg/0.5mL dose or 50 mcg/0.25mL dose 2 [place]UE [place] [facility] 08/04/2024 11:30:21 COVID-19, mRNA, LNP-S, PF, 100 mcg/0.5mL dose or 50 mcg/0.25mL dose 1 [place]UE [place] [facility] 08/04/2024 11:30:21 Pneumococcal conjugate PCV20, polysaccharide [id number] conjugate, adjuvant, PF 3 [place] [facility] 08/04/2024 11:30:21 COVID-19, mRNA, LNP-S, bivalent, PF, 50 mcg/0.5 mL or 25mcg/0.25 mL dose 2 [place] [facility] 08/04/2024 11:30:21 COVID-19, mRNA, LNP-S, PF, teo-sucrose, 30 mcg/0.3 mL 4 completed Earl Mcconnell [place], [place] [facility] 08/04/2024 11:30:21 influenza, unspecified formulation 8 completed [place] [facility] 08/04/2024 11:30:21 influenza, unspecified formulation 5 [place] [facility] 08/04/2024 11:30:21 Influenza, high-dose, trivalent, PF 6 [place] [facility] 08/04/2024 11:30:21 Influenza, high-dose, trivalent, PF 7 [place] [facility] 08/04/2024 11:30:21 Influenza, high-dose, trivalent, PF 9 [place] [facility] 08/04/2024 11:30:21 Influenza, split virus, trivalent, preservative 1 completed Earl Mccon[place] [facility] 08/04/2024 11:30:21 Influenza, split virus, trivalent, preservative 4 [place] [facility] 08/04/2024 11:30:21 Influenza, split virus, quadrivalent, PF 0 [place] [facility] 08/04/2024 11:30:21 Influenza, split virus, trivalent, preservative 4 completed Mitzi Lemus LPN [place] [facility] 08/04/2024 16:40:46 RSV, recombinant, protein subunit RSVpreF, adjuvant reconstituted, 0.5 mL, PF 5 completed Earl Mcconnell [place] [facility] 12/09/2024 09:54:26 COVID-19, mRNA, LNP-S, PF, 50 mcg/0.5 mL 5 completed Not Available [employer] 01/30/2025 11:21:36 Tdap 5 completed Shine Garcia MD Attn: Accounting,[address] [place], [address], [place] [facility] 12/10/2024 22:44:01 Past Encounters Encounter ID Performer Location Encounter Start Date Encounter Closed Date Diagnosis/Indication Diagnosis SNOMED-CT Code Diagnosis ICD10 Code Diagnosis Note [id number] Shine Garcia MD [facility] [employer] [address] [place] [address] 12/03/2023 10:39:41 12/03/2023 12:15:01 Essential hypertension 77083652 I10 Hyperlipidemia 81103707 E78.5 Hypothyroidism 40876398 E03.9 Obstructiv e sleep apnea syndrome 78741465 G47.33 Renal cell carcinoma 702 178831 C64.9 Chronic low back pain 27 9096457 M54.50 History of malignant neoplasm of breast 451925059 Z85.3 Decreased hearing 451312 001 H91.93 [id number] Shine Garcia MD [facility] [employer] [address] [place] [address] 03/31/2024 11:03:50 03/31/2024 12:54:21 Obesity 476156892 E66.8 Essential hypertension 69887116 I10 Hyperlipidemia 59114899 E78.5 Hypothyroidism 19066790 E03.9 Type 2 micah betes mellitus 14792869 E11.9 Screening for malignant neoplasm of prostate 769677432 Z12.5 Chronic low back pain 27 3067122 M54.50 [id number] Shine Garcia MD [facility] [employer] [address] [place] [address] 08/04/2024 10:51:00 08/04/2024 11:38:38 Body mass index 30+ - obesity 312394698 Z68.37 Obesity 303448136 E66.9 Essential hypertension 87694401 I10 Hyperlipidemia 76928767 E78.5 Hypothyroidism 79026948 E03.9 Obstructiv e sleep apnea syndrome 17129371 G47.33 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 History of malignant neoplasm of breast 358335578 Z85.3 [id number] Shine Garcia MD [facility] [employer] [facility] [place] [address] [place] [address] 12/08/2024 10:38:21 12/08/2024 11:54:26 Body mass index 30+ - obesity 903359298 Z68.37 Obesity 719388120 E66.9 Requires d iphtheria, tetanus and pertussis vaccination 644575131 Z23 Hyperlipidemia 90495232 E78.5 Hypothyroidism 51350034 E03.9 Obstructiv e sleep apnea syndrome 64900733 G47.33 Essential hypertension 62810986 I10 Chronic low back pain 27 0357259 M54.50 [id number] Shine Garcia MD [facility] [employer] [facility] [place] [address] [place] [address] 01/30/2025 11:20:36 01/30/2025 11:59:48 Obese class II 1182394758 28592 E66.812 Pain of to e of right foot 1807360295 01812 M79.674 Health Concerns Section Related Observation LastModified by Organization Detai ls LastModified Time None Recorded Concern Status LastModified by Organization Details LastModified Time None Recorded Advance Directives Directive Y: Payers Encounter Date Sequence Insurance Name Policy Number Policy [place] Covered Member ID [place] Member ID Guarantor Name 12/03/2023 1 [facility] [id number] Ron Turner [id number] Ron Turner 03/31/2024 1 [facility] [id number] Ron Turner [id number] Ron Turner 08/04/2024 1 [facility] (MEDICARE REPLACEMENT/A DVANTAGE - HMO) [id number] Ron Turner [id number] Ron Turner 12/08/2024 1 [facility] (MEDICARE REPLACEMENT/A DVANTAGE - HMO) [id number] Ron Castellonler [id number] Ron Yue Notes Date Note Type Note Provider Name and Address Organization Details Recorded Time 12/03/2023 text/html 83-year-old with multiple problems hypertension. Hypothyroid. Hyperlipidemia. AUTUMN. History of renal cell carcinoma. Chronic back pain. Kidney stone. BPH. History of breast cancer. Obesity. 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 Hypothyroid. Hyperlipidemia. AUTUMN. History of renal cell carcinoma. Chronic back pain. Kidney stone. BPH. History of breast cancer. Obesity. 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 his chronic back pain he did not get out to the garden had to give all of that up which kind of bothers him he had no referable decompensation symptoms with regards to hypertension hypothyroidism tries to watch his diet with his hyperlipidemia is using his CPAP Shine Garcia MD Attn: Accounting[address] [place], [address], [place] [facility] 04/10/2024 15:30:35 08/04/2024 text/html follow up of his medical problems hypertension blood pressure is well controlled he does have some chronic back pain that flares up from time to time dyslipidemia he was taking his generic Zetia with regards to his prostate finasteride seems to have those symptoms under control thyroid he takes his levothyroxine he does feel a little bit tired and for hypertension he does use the triamterene hydrochlorothiazide in conjunction with enalapril he does have a history of breast cancer and he has followed in the breast Cancer survivorship program through [facility] also 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 [employer] CPAP Shine Garcia MD Attn: Accounting[address] , [place], [address], [facility] 08/29/2024 21:22:06 12/08/2024 text/html 83-year-old with multiple problems hypertension. Hypothyroid. Hyperlipidemia. AUTUMN. History of renal cell carcinoma. Chronic back pain. Kidney stone. BPH. History of breast cancer. Obesity. Comes in for follow-up of his medical problems he has had no new interval developments or complaints Shine Garcia MD Attn: Accounting[address] [facility], [place], [address], [facility] 12/10/2024 22:46:06
--- OUTSIDE RECORDS SUMMARY | 2025-01-30 12:58 | XMS_ITS | Encounter Summary ---
Author Organization [facility] Address [address] [place] [address] Care Team Providers Care Medical Staff Assistant Name Role Phone Sherman Garcia MD Primary Care Provider [phone] Encounter Details Date Type Department Care Team (Late st Contact Info) Description 06/19/2022 Lab Requisition [facility] [address] [place] [id number] Law Gutiérrez MD [address] [place] [address] Social History Tobacco Use Types Packs/Day Years Used Date Smoking Tobacco: Never Assessed Sex and Gender Information Value Date Recorded Sex Assigned at Not on file Legal Sex Male 7:01 AM CDT Gender Identity Not on file Sexual Orientation Not on file documented as of this encounter Plan of Treatment Not on file documented as of this encounter Procedures Procedure Name Priority Date/Time Associated Diagnosis Comments DERMATOPATHOLOGY Routine 06/18/2022 12:0 0 AM CDT documented in this encounter Results * DERMATOPATHOLOGY (06/18/2022 12:00 AM CDT) Case Report Dermatopathology Report Case: [id number] Authorizing Provider: Law Gutiérrez MD Collected: 06/18/2022 12:00 AM Ordering Location: [facility] Received: 06/19/2022 07:11 AM Pathologist: Marylin Fernando MD Specimen: Skin, right upper lip 1:32 PM CDT DERMATOPATHOLOGY LABORATORY Final Diagnosis Specimen A. 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 The specimen consists of a shave biopsy measuring 8x7x2 and 6x4x2 mm. Jar 0. 1:32 PM CDT DERMATOPATHOLOGY LABORATORY Microscopic Description Specimen A. SKIN, right upper lip: Within the dermis there are nodular aggregates of basaloid cells associated with fibromyxoid stroma and epithelial-stromal clefts. At the advancing margin of the neoplasm, there are smaller angulated nests that infiltrate the dermis. 1:32 PM CDT DERMATOPATHOLOGY LABORATORY Disclaimer An external and internal positive and negative controls are appropriate for the histochemical, immunohistochemical and immunofluorescence stain(s) in this case (if any), except where stated explicitly. The performance characteristics of the stain(s) cited in this report were developed and its performance characteristic determined by the Dermatopathology Laboratory at [facility], directed by Dr. Jennifer Pichardo. These tests need not be, and therefore are not, approved by the [place] Food and Drug Administration. The tests are used for clinical purposes. Billing Codes Specimen Charges Stain Charges 35036 1 1:32 PM CDT DERMATOPATHOLOGY LABORATORY Embedded Images 1:32 PM CDT DERMATOPATHOLOGY LABORATORY Pathology/Cytolog y TISSUE SPECIMEN FROM SKIN / Unknown 06/18/2022 06/19/2022 7:11 AM CDT Law Gutiérrez MD LAB - PATHOLOGY/CYTOLOGY ORDERAB LES Final Result DERMATOPATHOLOGY LABORATORY [facility] - Department of Dermatology [facility] Medicine [address] [place] [address], [address] [phone] documented in this encounter Visit Diagnoses Not on filedocumented in this encounter Care Teams Medical Staff Assistant Relationship Specialty Start Date End Date Sherman Garcia MD PCP - General 06/19/22 documented as of this encounter
--- OUTSIDE RECORDS SUMMARY | 2025-01-30 12:58 | XMS_ITS | Encounter Summary ---
Author Organization [facility] Address [address] [place] [address] Care Team Providers Care Pipe Stem Repairer Name Role Phone Sherman Garcia MD Primary Care Provider [phone] Encounter Details Date Type Department Care Team (Late st Contact Info) Description 01/16/2023 Lab Requisition [facility] - DermPath Lab [address] [place] [id number] Law Gutiérrez MD [address] [place] [address] Social History Tobacco Use Types [...] Priority Date/Time Associated Diagnosis Comments DERMATOPATHOLOGY Routine 01/15/2023 3:33 AM CDT documented in this encounter Results * DERMATOPATHOLOGY (01/15/2023 3:33 AM CDT) Case Report Dermatopathology Report Case: [id number] Authorizing Provider: Law Gutiérrez MD Collected: 01/15/2023 03:33 AM Ordering Location: [facility] DermPath Lab Received: 01/16/2023 08:44 AM Pathologist: Marylin Fernando MD Specimens: A) - Skin, right nasal superior B) - Skin, right nasal mid C) - Skin, right nasal inferior 3 11:26 AM CDT DERMATOPATHOLOGY LABORATORY Amended Report Change date of service from 01/13/23 to 01/15/23 3 11:26 AM CDT DERMATOPATHOLOGY LABORATORY Final Diagnosis Specimen A. 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 SKIN, right nasal inferior: BASAL CELL CARCINOMA, NODULAR TYPE (C44.311) 3 11:26 AM T DERMATOPATHOLOGY LABORATORY Amendment electronically signed by Marylin Fernando MD on 02/17/2023 at 1126 CDT at 1400 CDT Clinical History A-C: R/O BCC 3 11:26 AM [facility] DERMATOPATHOLOGY LABORATORY Gross Description Specimen A: Received is one formalin filled container labeled with the patient's name and designated right nasal superior. The specimen consists of a shave biopsy measuring 6x3x1 mm. Jar 0. Specimen B: Received is one formalin filled container labeled with the patient's name and designated right nasal mid. The specimen consists of a shave biopsy measuring 7x6x2 mm. Jar 0. Specimen C: Received is one formalin filled container labeled with the patient's name and designated right nasal inferior. The specimen consists of a shave biopsy measuring 8x6x2 mm. Jar 0. 3 11:26 AM [facility] DERMATOPATHOLOGY LABORATORY Microscopic Description Specimen A. SKIN, right nasal superior: The epidermis shows parakeratosis, full thickness disorderly maturation of keratinocytes, mitoses at different levels, and dyskeratotic cells. In some foci, there is loss of cohesion between the neoplastic cells, as well as individual dyskeratotic cells that lack intercellular bridges. Specimen B. SKIN, right nasal mid: Within the dermis there are aggregates of basaloid cells with a high nuclear to cytoplasmic ratio and peripheral palisading. Specimen C. SKIN, right nasal inferior: Within the dermis there are aggregates of basaloid cells with a high nuclear to cytoplasmic ratio and peripheral palisading. 3 11:26 AM [facility] DERMATOPATHOLOGY LABORATORY Disclaimer An external and internal positive and negative controls are appropriate for the histochemical, immunohistochemical and immunofluorescence stain(s) in this case (if any), except where stated explicitly. The performance characteristics of the stain(s) cited in this report were developed and its performance characteristic determined by the Dermatopathology Laboratory at [facility], directed by Dr. Jennifer Pichardo. These tests need not be, and therefore are not, approved by the [place] Food and Drug Administration. The tests are used for clinical purposes. Billing Codes Specimen Charges Stain Charges 20803 12097 17372 1 1 1 3 11:26 AM CDT DERMATOPATHOLOGY LABORATORY Embedded Images 3 11:26 AM CDT DERMATOPATHOLOGY LABORATORY Pathology/Cytology TISSUE SPECIMEN FROM SKIN / Unknown 01/15/2023 3:33 AM CDT 01/16/2023 8:44 AM CDT Miscellaneous samples (specimen) TISSUE SPECIMEN FROM SKIN / Unknown 01/15/2023 3:33 AM CDT 01/16/2023 8:44 AM CDT Miscellaneous samples (specimen) TISSUE SPECIMEN FROM SKIN / Unknown 01/15/2023 3:33 AM CDT 01/16/2023 8:44 AM CDT Law Gutiérrez MD LAB - PATHOLOGY/CYTOLOGY ORDERAB LES Edited Result - Final DERMATOPATHOLOGY LABORATORY [facility] - Department of Dermatology [facility] [address] [place] [address], [address] [phone] documented in this encounter Visit Diagnoses Not on filedocumented in this encounter Care Teams Pipe Stem Repairer Relationship Specialty Start Date End Date Sherman Garcia MD PCP - General 06/19/22 documented as of this encounter
--- OUTSIDE RECORDS SUMMARY | 2025-01-30 12:58 | XMS_ITS | Clinical Summary ---
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 [phone] Allergies Active Allergy Reactions Criticality Noted Date Comments Latex Itching Low Levofloxacin Other (See comments) Low Reaction: Medications triamterene-hyd roCHLOROthiazid e (MAXZIDE,DYAZID E) 37.5-25 mg per tablet/capsule Activ e finasteride (PROSCAR) 5 mg tablet 09/16/2018 Active levothyroxine (SYNTHROID, LEVOTHROID) 125 mcg tablet 09/16/2018 Active enalapril (VASOTEC) 20 mg tablet 09/16/2018 Active amLODIPine (NORVASC) 10 mg tablet 09/16/2018 Active ezetimibe (ZETIA) 10 mg tablet 09/06/2020 Active fish oil-dha-epa 1,200-144-216 mg capsule Take by mouth Activ e ascorbic acid (VITAMIN C) 500 mg tablet,chewable Acti ve cyanocobalamin (Vitamin B-12) 100 mcg tabletIndicatio ns:Prevention of Vitamin B12 Deficiency Take 1 tablet (100 mcg total) by mouth daily Active multivit-min/fo lic/vit K/lycop (ONE-A-DAY MEN'S 50 PLUS ORAL) Take by mouth Active turmeric root extract 500 mg capsule Take by mouth Active omeprazole (PriLOSEC) 20 mg capsule 10/16/2021 Active fluocinonide (LIDEX) 0.05 % cream APPLY TO THE AFFECTED AREA(S) OF THE TRUNK, ARMS AND LEGS TWO TIMES A DAY 04/14/2022 Active Active Problems Problem Noted Date Diagnosed Date 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 Malignant neoplasm of breast in male, estrogen receptor positive 03/02/2017 Immunizations Immunization Administration Dates Next Due Influenza, Quadrivalent, Spl it, Preservative Free, Intramuscular 06/07/2020 Influenza, Trivalent, High D ose, Split, Preservative Free, Intramuscular 07/14/2019,05/25/2018,06/25/2017,06/06 Influenza, Trivalent, IM (MDV) 05/26/2021 Influenza, Unspecified 06/04/2018,06/06/2015 Moderna SARS-CoV-2 Monovalen t Vaccination (12+ YRS) 07/30/2021,12/07/2020,11/02/2020 Surgical History Surgery Date Site/Laterality Comments MD EXC CYST/ABERRANT BREAST TISSUE OPEN 1/> LESION Breast Surgery Lumpectomy - (Added by TW Conv) MD CYSTO/URETERO W/LITHOTRIP SY &INDWELL STENT INSRT Cystoscopy Ureteroscopy Lithotripsy Incl Insert Indwelling Ureter Stent - (Added by TW Conv) Medical History Medical History Date Comments Personal history of other di seases of urinary system History of acute renal failu re - (Added by TW Conv) Personal history of other di seases of the circulatory system History of hypertension - (A dded by [employer]) Personal history of urinary calculi History of nephrolithiasis - (Added by TW Conv) Personal history of other endocrine, nutritional and metabolic disease History of hypothyroidism - (Added by TW Conv) Personal history of malignan t neoplasm of breast History of breast cancer - ( Added by TW Conv) 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 Breast cancer (HCC) Family History Medical History Relation Name Comments Breast cancer Father Family history of malignant neoplasm of breast - (Added by TW Conv) Breast cancer Mother Family history of malignant neoplasm of breast - (Added by [email or web address] Conv) Relation Name Status Comments Father Mother Social History Tobacco Use Types Packs/Day Years Used Date Smoking Tobacco: Never Smokeless Tobacco: Never Alcohol Use Standard Drinks/Week Comments No 0 (1 standard drink = 0.6 oz pur e alcohol) AUDIT-C Answer Date Recorded Frequency of Alcohol Consumption Not on file 06/03/2024 Q2: How many drinks containi ng alcohol do you have on a typical day when you are drinking? Patient does not drink Frequency of Binge Drinking Not on file 05/24 Personal Safety Answer Date Recorded Getting School Help Needed Not on file 08/07 Sex and Gender Information Value Date Recorded Sex Assigned at Not on file Legal Sex Male 2:20 PM CDT Gender Identity Not on file Sexual Orientation Not on file Obstetrics History Last Filed Vital Signs Vital Sign Reading Time Taken Comments Blood Pressure 138/72 06/03/2024 11:13 AM CDT Pulse 78 06/03/2024 11:13 AM CDT Temperature 36.7 C (98 F) 06/03/2024 11:13 AM CDT Respiratory Rate 18 06/03/2024 11:13 AM CDT Oxygen Saturation 97% 06/03/2024 11:13 AM CDT Inhaled Oxygen Concentration - - Weight 117 kg (258 lb) 06/03/2024 11:13 AM CDT Height 177.8 cm (5' 10) 06/16/2023 2:17 PM CDT Body Mass Index 37.02 06/16/2023 2:17 PM CDT Plan of Treatment Health Maintenance Due Date Last Done Comments Depression Screening 1940 Fall Risk Assessment 1940 DTaP/Tdap/Td Vaccine (1 - Tdap) 1950 Hepatitis B Screening 1957 Pneumococcal vaccine 65+ (1 of 1 - PCV) 1989 Zoster Vaccine (1 of 2) 1989 Well Visit 65+ 2004 Covid-19 Vaccine (6 - 2023-2 5 season) 2024 08/26/2023, 07/07/2022, 07/30/2021, Additional history exists Influenza Vaccine (Season Ended) 2025 05/26/2021, 06/07/2020, 07/14/2019, Additional history exists Insurance [facility] [place] [id number] [place] [id number] [place] [id number] Care Teams On Air Director Relationship Specialty Start Date End Date Sherman Garcia MD PCP - General 04/17/17 Do Muller NP [address] [place] [place] [phone] Nurse Practitioner Medical Oncology 04/30/22
--- OUTSIDE RECORDS SUMMARY | 2025-01-30 12:58 | XMS_ITS | Data Portability ---
Author Organization [place] [facility] [employer], Main Office Address [address] [place] [address] Care Team Providers Care Lobster Man Name Role Phone SHINE GARCIA Primary Care Provider Assessment Encounter Date Assessment Date Assessment LastModified by Organization Details LastModified Time 12/11/2022 12/11/2022 Assessment and plan diagnosis have been discussed blood work has been ordered targets blood pressure weight and lipids have been discussed Annual wellness visit conclude Prev 20 Follow-up 4 months [email or web address] Not available 12/11/2022 21:53:43 04/09/2023 04/09/2023 Diagnosis discussed blood work will be ordered for next visit continue therapy 4 months. [email or web address] Not available 04/09/2023 22:41:05 08/06/2023 08/06/2023 Continue current therapy blood work reviewed A1c and PSA will be ordered all questions answered benefit from CPAP see me 4 months [email or web address] Not available 08/07/2023 09:23:38 Plan of Treatment Reminders Order Date Submit Date Provider Last Modified By Organization Details Last Modified Time Details Appointments None recorded . Lab HbA1c (hemoglo bin A1c), blood 023 08/06/20 23 cyahl Not available 3 08:55:00 PSA, serum or plasma 023 08/06/20 23 cyahl Not available 3 08:55:00 CMP, serum or plasma 023 04/09/20 23 FELIX Not available 3 13:47:51 CBC w/ auto diff 023 04/09/20 23 FELIX Not available 3 13:59:55 lipid panel, serum 023 04/09/20 23 [email or web address] Not available 3 13:47:55 TSH, serum or plasma 023 12/12/19 23 FELIX Not available 3 19:20:01 T4, free, serum 023 12/12/19 23 FELIX Not available 3 18:48:05 T3, free, serum or plasma 023 12/12/19 23 FELIX Not available 3 18:48:11 lipid panel, serum 023 12/12/19 23 FELIX Not available 3 18:39:13 CMP, serum or plasma 023 12/12/19 23 FELIX Not available 3 18:39:19 CBC w/ auto diff 023 12/12/19 23 FELIX Not available 3 18:21:36 Referral None recorded . Procedures None recorded . Surgeries None recorded . Imaging None recorded . Medication Orders None recorded . Patient TargetsNo targets recorded. Patient Instructions Encounter Date Encounter Id Patient Instructions Last Modified By Organization Details Last Modified Time 12/11/2022 [id number] dementia rating scale-2* Not available 12/11/2022 12:08:19 depression screening* [email or web address] Not available 12/11/2022 12:08:19 alcohol misuse* [email or web address] Not available 12/11/2022 12:08:19 multi-dimensiona l health assessment questionnaire* Not available 12/11/2022 12:08:19 Personalized a lt Plan and Screening Recommendations Advance Directives - Do you have one? Yes Advance Directives - Do we have your advance directive on file in your health record? No, please bring in a copy at your earliest convenience Primary Prevention/Interven tion (prevents or decreases the chance of common diseases from occurring) Smoking Risk: Non Smoker Refer to attached smoking cessation handouts Refer to attached handouts and prescription will be sent to pharmacy Continue to consider stopping smoking and call if we can assist you Recommend screening for possible Emphysema with pulmonary function testing Recommend lung cancer screening with low dose CT scan of the chest I have no recommendations. Alcohol Misuse Screening: Negative Refer to attached alcohol cessation handout Refer to attached handout and prescription will be sent to pharmacy Decrease alcohol intake to 2 or less servings per day Continue to consider stopping alcohol and call if we can assist you Recommend referral for alcohol counseling/rehabili tation I have no recommendations. Weight: Overweight try to lose 10% of your body weight Physical activity: Need more exercise/physical activity decrease sitting time to no more than 5hr/day Nutrition: Average Refer to attached handout Heart-Healthy Diet: After Your Visit Fall Risk (screened today): Intermediate Refer to attached handout Preventing Falls: After your Visit Vaccines Pneumococcal: Recommended today Influenza: Your next one in the fall of this year Chronic Disease Risks Stroke: Intermediate Risk I have no recommendations Act tamia diagnosis, Continue current treatment plan My recommendation would be to make an appointment for further testing Continue current treatment plan Heart Attack: Intermediate Risk I have no recommendations Act tamia diagnosis, Continue current treatment plan My recommendation would be to make an appointment for further testing Continue current treatment plan Clogging of the Arteries: Intermediate Risk I have no recommendations Act tamia diagnosis, Continue current treatment plan My recommendation would be to make an appointment for further testing Continue current treatment plan Diabetes: Low Risk I have no recommendations Secondary Prevention/Interven tion (detects treatable diseases before they may cause symptoms, disability, or ) Prostate Cancer Screening: No PSA screening necessary No digital rectal exam screening necessary Colon Cancer Screening: Colonoscopy No screening necessary Date Screening Last Performed: Unknown date Eye Disease Screening: Ordered Recommended today Recommended today, but you have declined No Eye exam necessary Your next exam in: 08/2023 Dementia Risk: Low I have no recommendations Depression Screening: Negative Recommend additional evaluation and/or treatment as noted above Recommend follow appointment to further evaluate Recommend Behavioral Health referral Active diagnosis, Continue current treatment plan I have no recommendations. Not available 12/11/2022 12:04:26 Reason for Referral None Reported. Results Created Date Observation Date Name Description Value Unit Range Abnormal Flag Note LastModifiedBy Organization Detail LastModifiedTime 12/12/19 23 12/11/2022 CBC/C OMPLE TE BLD COUNT W/DIF F white blood cells 6.8 x10'3 /uL 4.2-10 .8 Not Available [facility] (Lab) [address] [place], [address], 12/11/2022 18:21:36 12/12/19 23 12/11/2022 CBC/C OMPLE TE BLD COUNT W/DIF F red blood cells 4.80 x10'6 /uL 4.10-5 .80 Not Available [facility] (Lab) [address] [place], [address], 12/11/2022 18:21:36 12/12/19 23 12/11/2022 CBC/C OMPLE TE BLD COUNT W/DIF F hemoglobin 14.7 g/dL 13.2-1 7.0 Not Available [facility] (Lab) [address] [place], [address], 12/11/2022 18:21:36 12/12/19 23 12/11/2022 CBC/C OMPLE TE BLD COUNT W/DIF F hematocrit 45.3 % 39.3-5 0.0 Not Available [facility] (Lab) [address] [place], [address], 12/11/2022 18:21:36 12/12/19 23 12/11/2022 CBC/C OMPLE TE BLD COUNT W/DIF F mean red cell volume 94.4 fL 80.0-9 7.0 Not Available [facility] (Lab) [address] [place], [address], 12/11/2022 18:21:36 12/12/19 23 12/11/2022 CBC/C OMPLE TE BLD COUNT W/DIF F mean red cell hemoglobin 30.6 pg 27.0-3 3.0 Not Available [facility] (Lab) [address] [place], [address], 12/11/2022 18:21:36 12/12/19 23 12/11/2022 CBC/C OMPLE TE BLD COUNT W/DIF F mean RBC HGB concentratio n 32.5 g/dL 31.0-3 6.0 Not Available [facility] (Lab) [address] [place], [address], 12/11/2022 18:21:36 12/12/19 23 12/11/2022 CBC/C OMPLE TE BLD COUNT W/DIF F red cell distribution width 14.0 % 11.8-1 5.5 Not Available [facility] (Lab) [address] [place], [address], 12/11/2022 18:21:36 12/12/19 23 12/11/2022 CBC/C OMPLE TE BLD COUNT W/DIF F platelets 167 x10'3 /uL 150-40 0 Not Available [facility] (Lab) [address] [place], [address], 12/11/2022 18:21:36 12/12/19 23 12/11/2022 CBC/C OMPLE TE BLD COUNT W/DIF F mean platelet volume 11.5 fL 9.0-12 .4 Not Available [facility] (Lab) [address] [place], [address], 12/11/2022 18:21:36 12/12/19 23 12/11/2022 CBC/C OMPLE TE BLD COUNT W/DIF F neutrophils 60.7 % 39.0-7 2.0 Not Available [facility] (Lab) [address] [place], [address], 12/11/2022 18:21:36 12/12/19 23 12/11/2022 CBC/C OMPLE TE BLD COUNT W/DIF F lymphocytes 26.2 % 16.0-4 7.0 Not Available [facility] (Lab) [address] [place], [address], 12/11/2022 18:21:36 12/12/19 23 12/11/2022 CBC/C OMPLE TE BLD COUNT W/DIF F monocytes 8.2 % 5.0-12 .0 Not Available [facility] (Lab) [address] [place], [address], 12/11/2022 18:21:36 12/12/19 23 12/11/2022 CBC/C OMPLE TE BLD COUNT W/DIF F eosinophils 3.1 % 1.0-7. 0 Not Available [facility] (Lab) [address] [place], [address], 12/11/2022 18:21:36 12/12/19 23 12/11/2022 CBC/C OMPLE TE BLD COUNT W/DIF F basophils 1.2 % 0.0-2. 0 Not Available [facility] (Lab) [address] [place], [address], 12/11/2022 18:21:36 12/12/19 23 12/11/2022 CBC/C OMPLE TE BLD COUNT W/DIF F immature granulocytes 0.6 % 0.00-0 .50 high Not Available [facility] (Lab) [address] [place], [address], 12/11/2022 18:21:36 12/12/19 23 12/11/2022 CBC/C OMPLE TE BLD COUNT W/DIF F neutrophils, absolute count 4.14 x10'3 /uL 1.5-8. 0 Not Available [facility] (Lab) [address] [place], [address], 12/11/2022 18:21:36 12/12/19 23 12/11/2022 CBC/C OMPLE TE BLD COUNT W/DIF F lymphocytes, absolute count 1.79 x10'3 /uL 1.07-3 .43 Not Available [facility] (Lab) [address] [place], [address], 12/11/2022 18:21:36 12/12/19 23 12/11/2022 CBC/C OMPLE TE BLD COUNT W/DIF F monocytes, absolute count 0.56 x10'3 /uL 0.29-0 .99 Not Available [facility] (Lab) [address] [place], [address], 12/11/2022 18:21:36 12/12/19 23 12/11/2022 CBC/C OMPLE TE BLD COUNT W/DIF F eosinophils, absolute count 0.21 x10'3 /uL 0.02-0 .53 Not Available [facility] (Lab) [address] [place], [address], 12/11/2022 18:21:36 12/12/19 23 12/11/2022 CBC/C OMPLE TE BLD COUNT W/DIF F basophils, absolute count 0.08 x10'3 /uL 0.01-0 .08 Not Available [facility] (Lab) [address] [place], [address], 12/11/2022 18:21:36 12/12/19 23 12/11/2022 CBC/C OMPLE TE BLD COUNT W/DIF F immature granulocytes ,absolute 0.04 x10'3 /uL 0.00-0 .05 Not Available [facility] (Lab) [address] [place], [address], 12/11/2022 18:21:36 12/12/19 23 12/11/2022 CBC/C OMPLE TE BLD COUNT W/DIF F nucleated red blood cells 0.0 % -0 Not Available [facility] (Lab) [address] [place], [address], 12/11/2022 18:21:36 12/12/19 23 12/11/2022 CBC/C OMPLE TE BLD COUNT W/DIF F NRBC# 0.00 x10'3 /uL Not Available [facility] (Lab) [address] [place], [address], 12/11/2022 18:21:36 12/12/19 23 12/11/2022 LIPID PANEL cholesterol 175 mg/dL 140-19 9 NIH ELVIN NSUS RECOM MENDA TION FOR VAMSI STERO L: ADULT CHILD LOW RISK: <200 <170 BORDE RLINE : <200- 239 ----- HIGH RISK: >240 >200 Not Available [facility] (Lab) [address] [place], [address], 12/11/2022 18:39:13 12/12/19 23 12/11/2022 LIPID PANEL triglyceride s 221 mg/dL 0-150 high NIH ELVIN NSUS REPOR T RECOM MENDA TION FOR TRIGL YCERI PHILIP: ADULT CHILD LOW RISK: <150 ----- BODER LINE: 150-1 99 ----- HIGH RISK: >200 ----- Not Available [facility] (Lab) [address] [place], [address], 12/11/2022 18:39:13 12/12/19 23 12/11/2022 LIPID PANEL HDL cholesterol 20 mg/dL 40- low Not Available [facility] (Lab) [address] [place], [address], 12/11/2022 18:39:13 12/12/19 23 12/11/2022 LIPID PANEL LDL cholesterol, calculated 111 mg/dL 0-130 NIH ELVIN NSUS REPOR T RECOM MENDA TIONS FOR LDL: ADULT CHILD LOW RISK <130 <110 (OPTI MAL LDL) <100 ----- BORDE RLINE : 130-1 59 ----- HIGH RISK: >160 >130 A TRIGL YCERI DE RESUL T >400 INVAL IDATE S THE CALCU LATIO N FOR LDL FRACT IONAT ION - THE LDL RESUL T WILL NOT BE REPOR JESUSITA. Not Available [facility] (Lab) [address] [place], [address], 12/11/2022 18:39:13 12/12/1912/11/2022 COMPR EHENS TAMIA METAB OLIC PANEL sodium 142 mmol/ L 137-14 5 Not Available [facility] (Lab) [address] [place], [address], 12/11/2022 18:39:18 12/12/19 23 12/11/2022 COMPR EHENS TAMIA METAB OLIC PANEL potassium 3.5 mmol/ L 3.5-5. 1 Not Available [facility] (Lab) [address] [place], [address], 12/11/2022 18:39:18 12/12/19 23 12/11/2022 COMPR EHENS TAMIA METAB OLIC PANEL chloride 107 mmol/ L 98-107 Not Available [facility] (Lab) [address] [place], [address], 12/11/2022 18:39:18 12/12/19 23 12/11/2022 COMPR EHENS TAMIA METAB OLIC PANEL carbon dioxide 25 mmol/ L 22-30 Not Available [facility] (Lab) [address] [place], [address], 12/11/2022 18:39:18 12/12/19 23 12/11/2022 COMPR EHENS TAMIA METAB OLIC PANEL anion gap 13.5 mmol/ L 14-22 low Not Available [facility] (Lab) [address] [place], [address], 12/11/2022 18:39:18 12/12/19 23 12/11/2022 COMPR EHENS TAMIA METAB OLIC PANEL glucose 113 mg/dL 70-99 high Not Available [facility] (Lab) [address] [place], [address], 12/11/2022 18:39:18 12/12/19 23 12/11/2022 COMPR EHENS TAMIA METAB OLIC PANEL BUN 16 mg/dL 8-19 Not Available [facility] (Lab) [address] [place], [address], 12/11/2022 18:39:18 12/12/19 23 12/11/2022 COMPR EHENS TAMIA METAB OLIC PANEL creatinine 1.08 mg/dL 0.66-1 .25 Not Available [facility] (Lab) [address] [place], [address], 12/11/2022 18:39:18 12/12/19 23 12/11/2022 COMPR EHENS TAMIA METAB OLIC PANEL GFR >60 Refer ence Range : [place] ge GFR Healt hy Adult : >60 mL/mi n/1.7 3 m2 Chron ic Kidne y Disea se: 15-60 mL/mi n/1.7 3 m2 Kidne y Failu re: <15/m L/min /1.73 m2 www.n iddk. [facility].g ov The MDRD study equat ion has not been valid ated in child erick <18 years of age; pregn ant women ; the elder ly >85 years of age; or in some racia l or ethni c subgr oups, such as Hispa nics. Outsi de the valid ated cyn eters , estim ated GFR is less accur ate, requi ring clini gina judgm ent on a case- by-ca se basis . Clini gina inter preta tion for other races and ages must be made by the clini barbra. The MDRD study equat ion has not been valid ated for the evalu ation of serum creat inine relat ed to nutri kevin l statu s or medic ation usage . For perso ns <18 years of age, a pedia tric GFR calcu lator is avail able on the [facility] websi te: https ://uriel shields.radu farmer.o rg/pr ofess ional s/kdo qi/gf r_cal culat or Not Available [facility] (Lab) [address] [place], [address], 12/11/2022 18:39:18 12/12/1912/11/2022 COMPR EHENS TAMIA METAB OLIC PANEL alkaline phosphatase 47 U/L 38-126 Not Available [facility] (Lab) [address] [place], [address], 12/11/2022 18:39:18 12/12/19 23 12/11/2022 COMPR EHENS TAMIA METAB OLIC PANEL alanine aminotransfe rase 41 U/L 0-50 Not Available [facility] (Lab) [address] [place], [address], 12/11/2022 18:39:18 12/12/19 23 12/11/2022 COMPR EHENS TAMIA METAB OLIC PANEL aspartate aminotransfe rase 72 U/L 15-46 high Not Available [facility] (Lab) [address] [facility] [place], [address], 12/11/2022 18:39:18 12/12/19 23 12/11/2022 COMPR EHENS TAMIA METAB OLIC PANEL bilirubin, total 0.70 mg/dL 0.20-1 .30 Not Available [facility] (Lab) [address] [place], [address], 12/11/2022 18:39:18 12/12/19 23 12/11/2022 COMPR EHENS TAMIA METAB OLIC PANEL calcium 9.8 mg/dL 8.4-10 .2 Not Available [facility] (Lab) [address] [place], [address], 12/11/2022 18:39:18 12/12/19 23 12/11/2022 COMPR EHENS TAMIA METAB OLIC PANEL total protein 7.7 g/dL 6.3-8. 2 Not Available [facility] (Lab) [address] [place], [address], 12/11/2022 18:39:18 12/12/19 23 12/11/2022 COMPR EHENS TAMIA METAB OLIC PANEL albumin 4.5 g/dL 3.0-4. 4 high Not Available [facility] (Lab) [address] [place], [address], 12/11/2022 18:39:18 12/12/19 23 12/11/2022 COMPR EHENS TAMIA METAB OLIC PANEL globulin 3.2 g/dL 2.6-4. 2 Not Available [facility] (Lab) [address] [place], [address], 12/11/2022 18:39:18 12/12/19 23 12/11/2022 COMPR EHENS TAMIA METAB OLIC PANEL A/G ratio 1.4 ratio 1.0-2. 0 Not Available [facility] (Lab) [address] [place], [address], 12/11/2022 18:39:18 12/12/19 23 12/11/2022 T4 FREE free T4 1.16 NG/dL 0.78-2 .19 Not Available [facility] (Lab) [address] [place], [address], 12/11/2022 18:48:05 12/12/19 23 12/11/2022 T3 FREE free T3 2.5 pg/mL 2.77-5 .27 low Not Available [facility] (Lab) [address] [place], [address], 12/11/2022 18:48:11 12/12/19 23 12/11/2022 TSH thyroid-stim ulating hormone 2.390 uIU/m L 0.465- 4.680 Not Available [facility] (Lab) [address] [place], [address], 12/11/2022 19:20:00 07/30/20 23 07/30/2023 COMPR EHENS TAMIA METAB OLIC PANEL sodium 145 mmol/ L 137-14 5 Not Available [facility] (Lab) [address] [place], [address], 07/30/2023 13:47:51 07/30/20 23 07/30/2023 COMPR EHENS TAMIA METAB OLIC PANEL potassium 3.8 mmol/ L 3.5-5. 1 Not Available [facility] (Lab) [address] [place], [address], 07/30/2023 13:47:51 07/30/20 23 07/30/2023 COMPR EHENS TAMIA METAB OLIC PANEL chloride 105 mmol/ L 98-107 Not Available [facility] (Lab) [address] [place], [address], 07/30/2023 13:47:51 07/30/20 23 07/30/2023 COMPR EHENS TAMIA METAB OLIC PANEL carbon dioxide 30 mmol/ L 22-30 Not Available [facility] (Lab) [address] [place], [address], 07/30/2023 13:47:51 07/30/20 23 07/30/2023 COMPR EHENS TAMIA METAB OLIC PANEL anion gap 13.8 mmol/ L 14-22 low Not Available [facility] (Lab) [address] [place] [address], [address], 07/30/2023 13:47:51 07/30/20 23 07/30/2023 COMPR EHENS TAMIA METAB OLIC PANEL glucose 164 mg/dL 70-99 high Not Available [facility] (Lab) [address] [place] [address], [address], 07/30/2023 13:47:51 07/30/20 23 07/30/2023 COMPR EHENS TAMIA METAB OLIC PANEL BUN 18 mg/dL 8-19 Not Available [facility] (Lab) [address] [place] [address], [address], 07/30/2023 13:47:51 07/30/2007/30/2023 COMPR EHENS TAMIA METAB OLIC PANEL creatinine 1.22 mg/dL 0.66-1 .25 Not Available [facility] (Lab) [address] [place] [address], [address], 07/30/2023 13:47:51 07/30/20 23 07/30/2023 COMPR EHENS TAMIA METAB OLIC PANEL GFR 57 Refer ence Range : [place] ge GFR Healt hy Adult : >60 mL/mi n/1.7 3 m2 Chron ic Kidne y Disea se: 15-60 mL/mi n/1.7 3 m2 Kidne y Failu re: <15/m L/min /1.73 m2 www.n iddk. nih.g ov The MDRD study equat ion has not been valid ated in child erick <18 years of age; pregn ant women ; the elder ly >85 years of age; or in some racia l or ethni c subgr oups, such as Hispa nics. Outsi de the valid ated cyn eters , estim ated GFR is less accur ate, requi ring clini gina judgm ent on a case- by-ca se basis . Clini gina inter preta tion for other races and ages must be made by the clini barbra. The MDRD study equat ion has not been valid ated for the evalu ation of serum creat inine relat ed to nutri kevin l statu s or medic ation usage . For perso ns <18 years of age, a pedia tric GFR calcu lator is avail able on the [facility] websi te: https ://uriel w.kid darian.o rg/pr ofess ional s/kdo qi/gf r_cal culat or Not Available [facility] (Lab) [address] [place], [address], 07/30/2023 13:47:51 07/30/20 23 07/30/2023 COMPR EHENS TAMIA METAB OLIC PANEL alkaline phosphatase 48 U/L 38-126 Not Available [facility] (Lab) [address] [place], [address], 07/30/2023 13:47:51 07/30/20 23 07/30/2023 COMPR EHENS TAMIA METAB OLIC PANEL alanine aminotransfe rase 24 U/L 0-50 Not Available [facility] (Lab) [address] [place], [address], 07/30/2023 13:47:51 07/30/20 23 07/30/2023 COMPR EHENS TAMIA METAB OLIC PANEL aspartate aminotransfe rase 38 U/L 15-46 Not Available [facility] (Lab) [address] [place], [address], 07/30/2023 13:47:51 07/30/20 23 07/30/2023 COMPR EHENS TAMIA METAB OLIC PANEL bilirubin, total 0.60 mg/dL 0.20-1 .30 Not Available [facility] (Lab) [address] [place], [address], 07/30/2023 13:47:51 07/30/20 23 07/30/2023 COMPR EHENS TAMIA METAB OLIC PANEL calcium 10.0 mg/dL 8.4-10 .2 Not Available [facility] (Lab) [address] [place], [address], 07/30/2023 13:47:51 07/30/20 23 07/30/2023 COMPR EHENS TAMIA METAB OLIC PANEL total protein 7.3 g/dL 6.3-8. 2 Not Available [facility] (Lab) [address] [place], [address], 07/30/2023 13:47:51 07/30/20 23 07/30/2023 COMPR EHENS TAMIA METAB OLIC PANEL albumin 4.3 g/dL 3.0-4. 4 Not Available [facility] (Lab) [address] [place], [address], 07/30/2023 13:47:51 07/30/20 23 07/30/2023 COMPR EHENS TAMIA METAB OLIC PANEL globulin 3.0 g/dL 2.6-4. 2 Not Available [facility] (Lab) [address] [place], [address], 07/30/2023 13:47:51 07/30/20 23 07/30/2023 COMPR EHENS TAMIA METAB OLIC PANEL A/G ratio 1.4 ratio 1.0-2. 0 Not Available [facility] (Lab) [address] [place], [address], 07/30/2023 13:47:51 07/30/2007/30/2023 LIPID PANEL cholesterol 180 mg/dL 140-19 9 NIH ELVIN NSUS RECOM MENDA TION FOR VAMSI STERO L: ADULT CHILD LOW RISK: <200 <170 BORDE RLINE : <200- 239 ----- HIGH RISK: >240 >200 Not Available [facility] (Lab) [address] [place], [address], 07/30/2023 13:47:55 07/30/2007/30/2023 LIPID PANEL triglyceride s 242 mg/dL 0-150 high NIH ELVIN NSUS REPOR T RECOM MENDA TION FOR TRIGL YCERI PHILIP: ADULT CHILD LOW RISK: <150 ----- BODER LINE: 150-1 99 ----- HIGH RISK: >200 ----- Not Available [facility] (Lab) [address] [place], [address], 07/30/2023 13:47:55 07/30/20 23 07/30/2023 LIPID PANEL HDL cholesterol 25 mg/dL 40- low Not Available [facility] (Lab) [address] [place] [address], [address], 07/30/2023 13:47:55 07/30/2007/30/2023 LIPID PANEL LDL cholesterol, calculated 107 mg/dL 0-130 NIH ELVIN NSUS REPOR T RECOM MENDA TIONS FOR LDL: ADULT CHILD LOW RISK <130 <110 (OPTI MAL LDL) <100 ----- BORDE RLINE : 130-1 59 ----- HIGH RISK: >160 >130 A TRIGL YCERI DE RESUL T >400 INVAL IDATE S THE CALCU LATIO N FOR LDL FRACT IONAT ION - THE LDL RESUL T WILL NOT BE REPOR JESUSITA. Not Available [facility] (Lab) [address] [place], [address], 07/30/2023 13:47:55 07/30/20 23 07/30/2023 CBC/C OMPLE TE BLD COUNT W/DIF F white blood cells 5.9 x10'3 /uL 4.2-10 .8 Not Available [facility] (Lab) [address] [place], [address], 07/30/2023 13:59:55 07/30/20 23 07/30/2023 CBC/C OMPLE TE BLD COUNT W/DIF F red blood cells 4.71 x10'6 /uL 4.10-5 .80 Not Available [facility] (Lab) [address] [place], [address], 07/30/2023 13:59:55 07/30/2007/30/2023 CBC/C OMPLE TE BLD COUNT W/DIF F hemoglobin 14.6 g/dL 13.2-1 7.0 Not Available [facility] (Lab) [address] [place], [address], 07/30/2023 13:59:55 07/30/20 23 07/30/2023 CBC/C OMPLE TE BLD COUNT W/DIF F hematocrit 44.8 % 39.3-5 0.0 Not Available [facility] (Lab) [address] [place], [address], 07/30/2023 13:59:55 07/30/2007/30/2023 CBC/C OMPLE TE BLD COUNT W/DIF F mean red cell volume 95.1 fL 80.0-9 7.0 Not Available [facility] (Lab) [address] [place], [address], 07/30/2023 13:59:55 07/30/20 23 07/30/2023 CBC/C OMPLE TE BLD COUNT W/DIF F mean red cell hemoglobin 31.0 pg 27.0-3 3.0 Not Available [facility] (Lab) [address] [place], [address], 07/30/2023 13:59:55 07/30/20 23 07/30/2023 CBC/C OMPLE TE BLD COUNT W/DIF F mean RBC HGB concentratio n 32.6 g/dL 31.0-3 6.0 Not Available [facility] (Lab) [address] [place], [address], 07/30/2023 13:59:55 07/30/20 23 07/30/2023 CBC/C OMPLE TE BLD COUNT W/DIF F red cell distribution width 14.0 % 11.8-1 5.5 Not Available [facility] (Lab) [address] [place], [address], 07/30/2023 13:59:55 07/30/20 23 07/30/2023 CBC/C OMPLE TE BLD COUNT W/DIF F platelets 171 x10'3 /uL 150-40 0 Not Available [facility] (Lab) [address] [place], [address], 07/30/2023 13:59:55 07/30/20 23 07/30/2023 CBC/C OMPLE TE BLD COUNT W/DIF F mean platelet volume 11.4 fL 9.0-12 .4 Not Available [facility] (Lab) [address] [place], [address], 07/30/2023 13:59:55 07/30/20 23 07/30/2023 CBC/C OMPLE TE BLD COUNT W/DIF F neutrophils 62.3 % 39.0-7 2.0 Not Available [facility] (Lab) [address] [place], [address], 07/30/2023 13:59:55 07/30/20 23 07/30/2023 CBC/C OMPLE TE BLD COUNT W/DIF F lymphocytes 27.1 % 16.0-4 7.0 Not Available [facility] (Lab) [address] [place], [address], 07/30/2023 13:59:55 07/30/2007/30/2023 CBC/C OMPLE TE BLD COUNT W/DIF F monocytes 6.4 % 5.0-12 .0 Not Available [facility] (Lab) [address] [place], [address], 07/30/2023 13:59:55 07/30/20 23 07/30/2023 CBC/C OMPLE TE BLD COUNT W/DIF F eosinophils 2.7 % 1.0-7. 0 Not Available [facility] (Lab) [address] [place], [address], 07/30/2023 13:59:55 07/30/20 23 07/30/2023 CBC/C OMPLE TE BLD COUNT W/DIF F basophils 1.0 % 0.0-2. 0 Not Available [facility] (Lab) [address] [place], [address], 07/30/2023 13:59:55 07/30/2007/30/2023 CBC/C OMPLE TE BLD COUNT W/DIF F immature granulocytes 0.5 % 0.00-0 .50 Not Available [facility] (Lab) [address] [place], [address], 07/30/2023 13:59:55 07/30/20 23 07/30/2023 CBC/C OMPLE TE BLD COUNT W/DIF F neutrophils, absolute count 3.67 x10'3 /uL 1.5-8. 0 Not Available [facility] (Lab) [address] [place], [address], 07/30/2023 13:59:55 07/30/20 23 07/30/2023 CBC/C OMPLE TE BLD COUNT W/DIF F lymphocytes, absolute count 1.60 x10'3 /uL 1.07-3 .43 Not Available [facility] (Lab) [address] [place], [address], 07/30/2023 13:59:55 07/30/2007/30/2023 CBC/C OMPLE TE BLD COUNT W/DIF F monocytes, absolute count 0.38 x10'3 /uL 0.29-0 .99 Not Available [facility] (Lab) [address] [place], [address], 07/30/2023 13:59:55 07/30/20 23 07/30/2023 CBC/C OMPLE TE BLD COUNT W/DIF F eosinophils, absolute count 0.16 x10'3 /uL 0.02-0 .53 Not Available [facility] (Lab) [address] [place], [address], 07/30/2023 13:59:55 07/30/20 23 07/30/2023 CBC/C OMPLE TE BLD COUNT W/DIF F basophils, absolute count 0.06 x10'3 /uL 0.01-0 .08 Not Available [facility] (Lab) [address] [place], [address], 07/30/2023 13:59:55 07/30/20 23 07/30/2023 CBC/C OMPLE TE BLD COUNT W/DIF F immature granulocytes ,absolute 0.03 x10'3 /uL 0.00-0 .05 Not Available [facility] (Lab) [address] [place], [address], 07/30/2023 13:59:55 07/30/20 23 07/30/2023 CBC/C OMPLE TE BLD COUNT W/DIF F nucleated red blood cells 0.0 % -0 Not Available [facility] (Lab) [address] [place], [address], 07/30/2023 13:59:55 07/30/20 23 07/30/2023 CBC/C OMPLE TE BLD COUNT W/DIF F NRBC# 0.00 x10'3 /uL Not Available [facility] (Lab) [address] [place], [address], 07/30/2023 13:59:55 07/30/20 23 07/30/2023 TSH thyroid-stim ulating hormone 1.990 uIU/m L 0.465- 4.680 Not Available [facility] (Lab) [address] [place], [address], 07/30/2023 14:17:04 07/30/2007/30/2023 VITAM IN D 25-HY DROXY [id number] 47.9 NG/mL 30-100 Vitam in D Statu s: Defic ient: <20 ng/mL Insuf ficie nt: 20-29 ng/mL Suffi cient : 30-10 0 ng/mL Not Available [facility] (Lab) [address] [place], [address], 07/30/2023 15:06:28 08/06/20 23 08/06/2023 HEMOG LOBIN A1C HA1C 5.2 % 4.0-6. 0 Diabe maría Scree tiffanie Crite mari: <5.7% Consi stent with absen ce of diabe maría 5.7-6 .4% Consi stent with incre ased risk for diabe maría (pred iabet es) >OR=6 .5% Consi stent with diabe maría REFER ENCE: Diabe maría Care 2016, 39(Mitchell ppl.1 ):s13 -s22 Not Available [facility] (Lab) [address] [place], [address], 08/06/2023 20:24:32 08/06/20 23 08/06/2023 PSA SCREE N PSA medicare screen 3.14 NG/mL 0.00-4 .00 Not Available [facility] (Lab) [address] [place], [address], 08/06/2023 22:23:12 03/31/20 24 03/31/2024 CBC/C OMPLE TE BLD COUNT W/DIF F white blood cells 7.3 x10'3 /uL 4.2-10 .8 Not Available [facility] (Lab) [address] [place], [address], 03/31/2024 18:40:30 03/31/20 24 03/31/2024 CBC/C OMPLE TE BLD COUNT W/DIF F red blood cells 4.45 x10'6 /uL 4.10-5 .80 Not Available [facility] (Lab) [address] [place], [address], 03/31/2024 18:40:30 03/31/20 24 03/31/2024 CBC/C OMPLE TE BLD COUNT W/DIF F hemoglobin 14.0 g/dL 13.2-1 7.0 Not Available [facility] (Lab) [address] [place], [address], 03/31/2024 18:40:30 03/31/20 24 03/31/2024 CBC/C OMPLE TE BLD COUNT W/DIF F hematocrit 41.7 % 39.3-5 0.0 Not Available [facility] (Lab) [address] [place], [address], 03/31/2024 18:40:30 03/31/20 24 03/31/2024 CBC/C OMPLE TE BLD COUNT W/DIF F mean red cell volume 93.7 fL 80.0-9 7.0 Not Available [facility] (Lab) [address] [place], [address], 03/31/2024 18:40:30 03/31/20 24 03/31/2024 CBC/C OMPLE TE BLD COUNT W/DIF F mean red cell hemoglobin 31.5 pg 27.0-3 3.0 Not Available [facility] (Lab) [address] [place], [address], 03/31/2024 18:40:30 03/31/20 24 03/31/2024 CBC/C OMPLE TE BLD COUNT W/DIF F mean RBC HGB concentratio n 33.6 g/dL 31.0-3 6.0 Not Available [facility] (Lab) [address] [place], [address], 03/31/2024 18:40:30 03/31/20 24 03/31/2024 CBC/C OMPLE TE BLD COUNT W/DIF F red cell distribution width 14.0 % 11.8-1 5.5 Not Available [facility] (Lab) [address] [place], [address], 03/31/2024 18:40:30 03/31/20 24 03/31/2024 CBC/C OMPLE TE BLD COUNT W/DIF F platelets 164 x10'3 /uL 150-40 0 Not Available [facility] (Lab) [address] [place], [address], 03/31/2024 18:40:30 03/31/20 24 03/31/2024 CBC/C OMPLE TE BLD COUNT W/DIF F mean platelet volume 11.2 fL 9.0-12 .4 Not Available [facility] (Lab) [address] [place], [address], 03/31/2024 18:40:30 03/31/20 24 03/31/2024 CBC/C OMPLE TE BLD COUNT W/DIF F neutrophils 66.2 % 39.0-7 2.0 Not Available [facility] (Lab) [address] [place], [address], 03/31/2024 18:40:30 03/31/20 24 03/31/2024 CBC/C OMPLE TE BLD COUNT W/DIF F lymphocytes 22.4 % 16.0-4 7.0 Not Available [facility] (Lab) [address] [place], [address], 03/31/2024 18:40:30 03/31/20 24 03/31/2024 CBC/C OMPLE TE BLD COUNT W/DIF F monocytes 7.2 % 5.0-12 .0 Not Available [facility] (Lab) [address] [place], [address], 03/31/2024 18:40:30 03/31/20 24 03/31/2024 CBC/C OMPLE TE BLD COUNT W/DIF F eosinophils 2.2 % 1.0-7. 0 Not Available [facility] (Lab) [address] [facility] [place], [address], 03/31/2024 18:40:30 03/31/20 24 03/31/2024 CBC/C OMPLE TE BLD COUNT W/DIF F basophils 1.2 % 0.0-2. 0 Not Available [facility] (Lab) [address] [place], [address], 03/31/2024 18:40:30 03/31/20 24 03/31/2024 CBC/C OMPLE TE BLD COUNT W/DIF F immature granulocytes 0.8 % 0.00-0 .50 high Not Available [facility] (Lab) [address] [place], [address], 03/31/2024 18:40:30 03/31/20 24 03/31/2024 CBC/C OMPLE TE BLD COUNT W/DIF F neutrophils, absolute count 4.81 x10'3 /uL 1.5-8. 0 Not Available [facility] (Lab) [address] [place], [address], 03/31/2024 18:40:30 03/31/20 24 03/31/2024 CBC/C OMPLE TE BLD COUNT W/DIF F lymphocytes, absolute count 1.63 x10'3 /uL 1.07-3 .43 Not Available [facility] (Lab) [address] [facility] [place], [address], 03/31/2024 18:40:30 03/31/20 24 03/31/2024 CBC/C OMPLE TE BLD COUNT W/DIF F monocytes, absolute count 0.52 x10'3 /uL 0.29-0 .99 Not Available [facility] (Lab) [address] [place], [address], 03/31/2024 18:40:30 03/31/20 24 03/31/2024 CBC/C OMPLE TE BLD COUNT W/DIF F eosinophils, absolute count 0.16 x10'3 /uL 0.02-0 .53 Not Available [facility] (Lab) [address] [place], [address], 03/31/2024 18:40:30 03/31/20 24 03/31/2024 CBC/C OMPLE TE BLD COUNT W/DIF F basophils, absolute count 0.09 x10'3 /uL 0.01-0 .08 high Not Available [facility] (Lab) [address] [place], [address], 03/31/2024 18:40:30 03/31/20 24 03/31/2024 CBC/C OMPLE TE BLD COUNT W/DIF F immature granulocytes ,absolute 0.06 x10'3 /uL 0.00-0 .05 high Not Available [facility] (Lab) [address] [place], [address], 03/31/2024 18:40:30 03/31/20 24 03/31/2024 CBC/C OMPLE TE BLD COUNT W/DIF F nucleated red blood cells 0.0 % -0 Not Available [facility] (Lab) [address] [place], [address], 03/31/2024 18:40:30 03/31/20 24 03/31/2024 CBC/C OMPLE TE BLD COUNT W/DIF F NRBC# 0.00 x10'3 /uL Not Available [facility] (Lab) [address] [place], [address], 03/31/2024 18:40:30 03/31/20 24 03/31/2024 T4 FREE free T4 1.13 NG/dL 0.78-2 .19 Not Available [facility] (Lab) [address] [place], [address], 03/31/2024 19:08:25 03/31/20 24 03/31/2024 T3 FREE free T3 2.7 pg/mL 2.77-5 .27 low Not Available [facility] (Lab) [address] [place], [address], 03/31/2024 19:08:31 03/31/20 24 03/31/2024 TSH thyroid-stim ulating hormone 1.700 uIU/m L 0.465- 4.680 Not Available [facility] (Lab) [address] [place], [address], 03/31/2024 19:36:38 03/31/20 24 03/31/2024 PSA SCREE N PSA medicare screen 2.79 NG/mL 0.00-4 .00 Not Available [facility] (Lab) [address] [place], [address], 03/31/2024 19:36:43 03/31/20 24 03/31/2024 HEMOG LOBIN A1C HA1C 5.3 % 4.0-6. 0 Diabe maría Scree tiffanie Crite mari: <5.7% Consi stent with absen ce of diabe maría 5.7-6 .4% Consi stent with incre ased risk for diabe maría (pred iabet es) >OR=6 .5% Consi stent with diabe maría REFER ENCE: Diabe maría Care 2016, 39(Mitchell ppl.1 ):s13 -s22 Not Available [facility] (Lab) [address] [place], [address], 03/31/2024 20:23:37 03/31/20 24 03/31/2024 LIPID PANEL cholesterol 157 mg/dL 140-19 9 NIH ELVIN NSUS RECOM MENDA TION FOR VAMSI STERO L: ADULT CHILD LOW RISK: <200 <170 BORDE RLINE : <200- 239 ----- HIGH RISK: >240 >200 Not Available [facility] (Lab) [address] [place], [address], 03/31/2024 20:51:59 03/31/20 24 03/31/2024 LIPID PANEL triglyceride s 315 mg/dL 0-150 high NIH ELVIN NSUS REPOR T RECOM MENDA TION FOR TRIGL YCERI PHILIP: ADULT CHILD LOW RISK: <150 ----- BODER LINE: 150-1 99 ----- HIGH RISK: >200 ----- Not Available [facility] (Lab) [address] [place], [address], 03/31/2024 20:51:59 03/31/20 24 03/31/2024 LIPID PANEL HDL cholesterol 22 mg/dL 40- low Not Available [facility] (Lab) [address] [place], [address], 03/31/2024 20:51:59 03/31/20 24 03/31/2024 LIPID PANEL LDL cholesterol, calculated 72 mg/dL 0-130 NIH ELVIN NSUS REPOR T RECOM MENDA TIONS FOR LDL: ADULT CHILD LOW RISK <130 <110 (OPTI MAL LDL) <100 ----- BORDE RLINE : 130-1 59 ----- HIGH RISK: >160 >130 A TRIGL YCERI DE RESUL T >400 INVAL IDATE S THE CALCU LATIO N FOR LDL FRACT IONAT ION - THE LDL RESUL T WILL NOT BE REPOR JESUSITA. Not Available [facility] (Lab) [address] [place], [address], 03/31/2024 20:51:59 03/31/20 24 03/31/2024 COMPR EHENS TAMIA METAB OLIC PANEL sodium 142 mmol/ L 137-14 5 Not Available [facility] (Lab) [address] [place], [address], 03/31/2024 20:52:06 03/31/20 24 03/31/2024 COMPR EHENS TAMIA METAB OLIC PANEL potassium 3.5 mmol/ L 3.5-5. 1 Not Available [facility] (Lab) [address] [facility] [place], [address], 03/31/2024 20:52:06 03/31/20 24 03/31/2024 COMPR EHENS TAMIA METAB OLIC PANEL chloride 110 mmol/ L 98-107 high Not Available [facility] (Lab) [address] [place], [address], 03/31/2024 20:52:06 03/31/20 24 03/31/2024 COMPR EHENS TAMIA METAB OLIC PANEL carbon dioxide 25 mmol/ L 22-30 Not Available [facility] (Lab) [address] [place], [address], 03/31/2024 20:52:06 03/31/20 24 03/31/2024 COMPR EHENS TAMIA METAB OLIC PANEL anion gap 10.5 mmol/ L 14-22 low Not Available [facility] (Lab) [address] [place], [address], 03/31/2024 20:52:06 03/31/20 24 03/31/2024 COMPR EHENS TAMIA METAB OLIC PANEL glucose 89 mg/dL 70-99 Not Available [facility] (Lab) [address] [place], [address], 03/31/2024 20:52:06 03/31/20 24 03/31/2024 COMPR EHENS TAMIA METAB OLIC PANEL BUN 23 mg/dL 8-19 high Not Available [facility] (Lab) [address] [place], [address], 03/31/2024 20:52:06 03/31/20 24 03/31/2024 COMPR EHENS TAMIA METAB OLIC PANEL creatinine 1.14 mg/dL 0.66-1 .25 Not Available [facility] (Lab) [address] [place], [address], 03/31/2024 20:52:06 03/31/20 24 03/31/2024 COMPR EHENS TAMIA METAB OLIC PANEL GFR >60 Refer ence Range : [place] ge GFR Healt hy Adult : >60 mL/mi n/1.7 3 m2 Chron ic Kidne y Disea se: 15-60 mL/mi n/1.7 3 m2 Kidne y Failu re: <15/m L/min /1.73 m2 www.n iddk. nih.g ov The MDRD study equat ion has not been valid ated in child erick <18 years of age; pregn ant women ; the elder ly >85 years of age; or in some racia l or ethni c subgr oups, such as Hispa nics. Outsi de the valid ated cyn eters , estim ated GFR is less accur ate, requi ring clini gina judgm ent on a case- by-ca se basis . Clini gina inter preta tion for other races and ages must be made by the clini barbra. The MDRD study equat ion has not been valid ated for the evalu ation of serum creat inine relat ed to nutri kevin l statu s or medic ation usage . For perso ns <18 years of age, a pedia tric GFR calcu lator is avail able on the NKF websi te: https ://uriel farmer.kortney arias/pr antonio monterrosoal s/kdo qi/gf r_cal culat or Not Available [facility] (Lab) [address] [place], [address], 03/31/2024 20:52:06 03/31/20 24 03/31/2024 COMPR EHENS TAMIA METAB OLIC PANEL alkaline phosphatase 56 U/L 38-126 Not Available [facility] (Lab) [address] [place], [address], 03/31/2024 20:52:06 03/31/20 24 03/31/2024 COMPR EHENS TAMIA METAB OLIC PANEL alanine aminotransfe rase 34 U/L 0-50 Not Available [facility] (Lab) [address] [place], [address], 03/31/2024 20:52:06 03/31/20 24 03/31/2024 COMPR EHENS TAMIA METAB OLIC PANEL aspartate aminotransfe rase 52 U/L 15-46 high Not Available [facility] (Lab) [address] [place], [address], 03/31/2024 20:52:06 03/31/20 24 03/31/2024 COMPR EHENS TAMIA METAB OLIC PANEL bilirubin, total 0.60 mg/dL 0.20-1 .30 Not Available [facility] (Lab) [address] [place], [address], 03/31/2024 20:52:06 03/31/20 24 03/31/2024 COMPR EHENS TAMIA METAB OLIC PANEL calcium 9.9 mg/dL 8.4-10 .2 Not Available [facility] (Lab) [address] [place], [address], 03/31/2024 20:52:06 03/31/20 24 03/31/2024 COMPR EHENS TAMIA METAB OLIC PANEL total protein 7.3 g/dL 6.3-8. 2 Not Available [facility] (Lab) [address] [place], [address], 03/31/2024 20:52:06 03/31/20 24 03/31/2024 COMPR EHENS TAMIA METAB OLIC PANEL albumin 4.4 g/dL 3.0-4. 4 Not Available [facility] (Lab) [address] [place], [address], 03/31/2024 20:52:06 03/31/20 24 03/31/2024 COMPR EHENS TAMIA METAB OLIC PANEL globulin 2.9 g/dL 2.6-4. 2 Not Available [facility] (Lab) [address] [place], [address], 03/31/2024 20:52:06 03/31/20 24 03/31/2024 COMPR EHENS TAMIA METAB OLIC PANEL A/G ratio 1.5 ratio 1.0-2. 0 Not Available [facility] (Lab) [address] [place], [address], 03/31/2024 20:52:06 10/06/19 23 10/03/2022 polys omnog bethany, diagn ostic , 6 yrs or older No observ ation record ed. [id number] [facility] [address] [place], [address], 10/22/2022 05:07:19 12/10/19 23 10/03/2022 sleep study , diagn ostic (PROC ) No observ ation record ed. [email or web address] [facility] [address] [place], [address], 12/11/2022 12:46:26 Result Notes None recorded. Problems Name Problem SNOMED Code Status Onset Date Resolution Date Notes Provider Name and Address Organization Details Recorded Time Obesity 817713763 Active 2022 Not Available [facility] 3 05:06:46 Hyperglyc emia 75554083 Active 2022 Not Available [facility] 3 05:06:46 Benign essential hypertens ion 8697830 Active Not Available [facility] 3 05:06:46 Laborator y test result abnormal 072071200 Active 2021 Not Available [facility] 3 05:06:46 Impacted cerumen 06358013 Active 2021 Not Available [facility] 3 05:06:46 Partial thickness rotator cuff tear 986259080 Active Not Available [facility] 3 05:06:46 Malignant tumor of breast 899094420 Active 2019 Not Available [facility] 3 05:06:46 Pure hyperchol esterolem ia 775090261 Active Not Available [facility] 3 05:06:46 Low back pain 065704160 Active 2021 Not Available [facility] 3 05:06:46 Prostate specific antigen above reference range 670672104 Active Not Available [facility] 3 05:06:46 Hypothyro idism 33765663 Active Not Available [facility] 3 05:06:46 Pain of shoulder region 74861529 Active Not Available [facility] 3 05:06:46 Renal cell carcinoma 543621483 Active 2020 partial right nephrectom y 2017 Dr. Red jones Not Available [facility] 3 05:06:46 Sleep apnea 13959335 Active 2021 Not Available [facility] 3 05:06:46 Notes:Shine Garcia MD [facility] diagnostic sleep study 10/02/22 sleep onset = 18 minutes, no REM, AHI = 46, supine AHI = 55, PLMI = 29 Medical History: Obesity with very severe OSAHS, AHI = 46, 10/02/22 Hypothyroidism Mixed hyperlipidemia Hypertension Bibasilar atelectasis Cholelithiasis Transaminitis Diverticulosis Bilateral inguinal hernias Left renal cysts Right nephrolithiasis BPH PLMD Lumbar spondylosis Procedure History: Right partial nephrectomy for renal cell ca Problem Notes None recorded. Procedures Surgical History Date Name Laterality Status Provider Name and Address Organization Details Recorded Time 12/12/19 Medicare Wellness CPT Code, subsequent completed Ginny Beach RN [place] - [facility] [employer] 12/11/2022 11:52:27 09/13/19 19 Hernia Repair completed Not Available [facility] 2022 04:42:10 07/20/20 17 other completed Not Available [facility] 3 04:42:10 03/02/20 17 excision of right breast completed Not Available [facility] 10/22/2022 04:42:10 Hernia repair w/mesh completed Not Available [facility] 10/22/2022 04:42:10 Cataract Surgery completed Not Available [facility] 10/22/2022 04:42:10 Genitourinary Procedure completed Not Available [facility] 10/22/2022 04:42:10 Imaging Results None recorded. Procedure Notes None recorded. Medical Equipment None Reported. Allergies Allergen ID Allergen Name Allergen Category Reaction Reaction Severity Criticality Documentation Date Start Date Code Code System Note Provider Name and Address Organization Details Recorded Time 8917 Levaquin medicatio n rash Not available Not available 10/22/2022 34333 2 RxNorm Not Available [facility] 3 05:06:46 Medications Name Sig Start Date Stop Date Status Note LastModified by Organization Details LastModified Time cephalexin 250 mg capsule 08/05 completed Not Available Not Available Not Available hydrocodone 5 mg-acetamin ophen 325 mg tablet 12/30 completed Not Available Not Available Not Available enalapril maleate 20 mg tablet TAKE 1 TABLET BY MOUTH TWICE DAILY 2023 active Not Available Not Available Not Avai lable prednisone 20 mg tablet TAKE 1 TABLET BY MOUTH EVERY DAY active Not Available Not Available No t Available lovastatin 40 mg tablet TAKE 1 TABLET BY MOUTH DAILY 01/03 completed Not Available Not Available Not Available prednisone 5 mg tablet TAKE 1 TABLET BY MOUTH DAILY 01/02 completed Not Available Not Available Not Available sulfamethox azole 800 mg-trimetho prim 160 mg tablet 03/23 completed Not Available Not Available Not Available tramadol 50 mg tablet TAKE 1 TABLET BY MOUTH EVERY 6 HOURS NEEDED FOR PAIN 05/01 completed Not Available Not Available Not Available ketorolac 0.5 % eye drops 12/30 completed Not Available Not Available Not Available oxycodone-a cetaminophe n 5 mg-325 mg tablet TAKE 1 TABLET BY MOUTH EVERY 4 TO 6 HOURS NEEDED active Not Available Not Available No t Available prednisolon e acetate 1 % eye drops,suspe nsion 12/30 completed Not Available Not Available Not Available tamsulosin 0.4 mg capsule 10/29 completed Not Available Not Available Not Available amlodipine 10 mg tablet TAKE 1 TABLET BY MOUTH DAILY 2023 active Not Available Not Available Not Avai lable cephalexin 500 mg capsule TAKE 1 CAPSULE TWICE A DAY FOR 7 DAYS 12/11 completed Not Available Not Available Not Available levothyroxi ne 125 mcg tablet TAKE 1 TABLET BY MOUTH DAILY 2023 active Not Available Not Available Not Avai lable polymyxin B sulfate 10,000 unit-trimet hoprim 1 mg/mL eye drops 12/30 completed Not Available Not Available Not Available triamterene 37.5 mg-hydrochl orothiazide 25 mg tablet TAKE 1 TABLET BY MOUTH DAILY 2023 active Not Available Not Available Not Avai lable omeprazole 20 mg capsule,del ayed release TAKE 1 CAPSULE BY MOUTH DAILY 04/09 completed Not Available Not Available Not Available diclofenac sodium 75 mg tablet,more yed release 01/01 completed Not Available Not Available Not Available Levaquin 500 mg tablet Take 1 tablet every 24 hours by oral route. 03/23 completed Not Available Not Available Not Available ibuprofen 600 mg tablet Take 1 tablet every day by oral route as needed. 01/03 completed Not Available Not Available Not Available fluocinonid e 0.05 % topical cream APPLY TO THE AFFECTED AREA(S) OF THE TRUNK, ARMS AND LEGS TWO TIMES A DAY 12/11 completed Not Available Not Available Not Available cefdinir 300 mg capsule Take 1 capsule every 12 hours by oral route as directed for 7 days. active Not Available Not Available No t Available tamoxifen 20 mg tablet active Not Available Not Available Not Available finasteride 5 mg tablet TAKE 1 TABLET BY MOUTH DAILY 2023 active Not Available Not Available Not Avai lable amoxicillin 875 mg-potassiu m clavulanate 125 mg tablet Take 1 tablet twice a day by oral route for 10 days. 03/23 completed Not Available Not Available Not Available ezetimibe 10 mg tablet active Not Available Not Available Not Available fluocinonid e-emollient 0.05 % topical cream APPLY TO THE AFFECTED AREA(S) OF THE TRUNK, ARMS AND LEGS TWO TIMES A DAY 05/09 completed dupl Not Available Not Available Not Available nitrofurant oin monohydrate /macrocryst als 100 mg capsule TAKE 1 CAPSULE BY MOUTH EVERY 12 HOURS FOR UTI MUST ADMINISTE R WITH A MEAL/FOOD active Not Available Not Available No t Available Vitamin C 2021 active Not Available Not Available Not Avai lable Fish Oil 2021 active Not Available Not Available Not Avai lable Tylenol 2021 active Not Available Not Available Not Avai lable Vitamin B12 2021 active Not Available Not Available Not Avai lable Men's One Daily 2021 active Not Available Not Available Not Avai lable Myrbetriq 50 mg tablet,exte nded release Take 1 tablet every day by oral route. 10/29 completed Not Available Not Available Not Available Afluria 4247-9863 45 mcg (15 mcg x 3)/0.5 mL intramuscul ar suspension TO BE ADMINISTE RED BY PHARMACIS T FOR IMMUNIZAT ION active Not Available Not Available No t Available Afluria 3056-3945 (PF) 45 mcg (15 mcg x 3)/0.5 mL IM syringe TO BE ADMINISTE RED BY PHARMACIS T FOR IMMUNIZAT ION active Not Available Not Available No t Available Fluzone High-Dose 2011-5152 (PF) 180 mcg/0.5 mL intramuscul ar syringe active Not Available Not Available N ot Available Fluzone High-Dose 3391-9276 (PF) 180 mcg/0.5 mL intramuscul ar syringe active Not Available Not Available N ot Available Fluzone High-Dose (PF) 180 mcg/0.5 mL intramuscul ar syringe active Not Available Not Available N ot Available turmeric 2021 active Not Available Not Available Not Avai lable Fluzone High-Dose (PF) 180 mcg/0.5 mL intramuscul ar syringe active Not Available Not Available N ot Available Fluzone Quad (PF) 60 mcg (15 mcg x 4)/0.5 mL IM syringe active Not Available Not Available N ot Available Vitals Date Recorded Body height Body mass index (BMI) Body weight Body temperature Heart rate Systolic blood pressure Diastolic blood pressure Provider Name and Address Organization Details Last Updated DateTime 3 177.8 cm 36.4 kg/m2 666527. 46 g 98.2 [degF] 79 /min 116 mm[Hg] 70 mm[Hg] TREY Goodman [facility] 3 11:17:36 Date Recorded Body mass index (BMI) Body height Oxygen saturation Oxygen saturation in Arterial blood by Pulse oximetry Heart rate Body temperature Body weight Systolic blood pressure Diastolic blood pressure Provider Name and Address Organization Details Last Updated DateTime 2 37.2 kg/m2 177.8 cm 98 % 98 % 72 /min 98.6 [degF] 816533. 42 g 129 mm[Hg] 70 mm[Hg] Not Available [facility] 3 04:46:35 Date Recorded Body height Body mass index (BMI) Body weight Body temperature Heart rate Systolic blood pressure Diastolic blood pressure Provider Name and Address Organization Details Last Updated DateTime 3 177.8 cm 36.2 kg/m2 089199. 28 g 98.3 [degF] 84 /min 116 mm[Hg] 68 mm[Hg] Carly cartwright RN [facility] 3 11:07:56 Date Recorded Body mass index (BMI) Body height Heart rate Body temperature Body weight Systolic blood pressure Diastolic blood pressure Provider Name and Address Organization Details Last Updated DateTime 2 35.9 kg/m2 177.8 cm 71 /min 97.2 [degF] 272874. 09 g 114 mm[Hg] 68 mm[Hg] Not Available [facility] 3 04:46:35 Date Recorded Body height Body mass index (BMI) Body weight Body temperature Heart rate Oxygen saturation Oxygen saturation in Arterial blood by Pulse oximetry Systolic blood pressure Diastolic blood pressure Provider Name and Address Organization Details Last Updated DateTime 3 177.8 cm 36 kg/m2 213698. 68 g 97.6 [degF] 74 /min 98 % 98 % 120 mm[Hg] 60 mm[Hg] Klaudia zapata CMA [facility] 3 11:23:48 Social History Question Answer Notes LastModified by Organization Details LastModified Time Tobacco Smoking Status Never Smoker Not Available [facility] 10/22/2022 04:20:55 Do You Have An Advance Directive? Yes MIGRATION.030 [id number] Information not available 10/22/2022 Are You Blind Or Do You Have Difficulty Seeing? No MIGRATION.030 [id number] Information not available 10/22/2022 What Is Your Level Of Caffeine Consumption? None MIGRATION.030 135236 Information not available 10/22/2022 How Much Tobacco Do You Chew? None MIGRATION.030 [id number] Information not available 10/22/2022 In The 14 Days Before Symptom Onset, Have You Had Close Contact With A Laboratory-confi rmed COVID-19 While That Case Was Ill? No MIGRATION.030 [id number] Information not available 10/22/2022 In The 14 Days Before Symptom Onset, Have You Had Close Contact With A Person Who Is Under Investigation For COVID-19 While That Person Was Ill? No MIGRATION.030 087599 Information not available 10/22/2022 Are You Deaf Or Do You Have Serious Difficulty Hearing? Yes Hearing Aids MIGRATION.030 346043 Information not available 10/22/2022 What Type Of Diet Are You Following? REGULAR MIGRATION.030 328771 Information not available 10/22/2022 Which Illicit Or Recreational Drugs Have You Used? None MIGRATION.030 750899 Information not available 10/22/2022 What Is The Highest Grade Or Level Of School You Have Completed Or The Highest Degree You Have Received? NI05065-7 MIGRATION.300026 Information not available 10/22/2022 Have There Been Any Changes To Your Family Or Social Situation? No MIGRATION.030 643241 Information not available 10/22/2022 What Is The Fluoride Status Of Your Home? Unknown MIGRATION.030 535102 Information not available 10/22/2022 Are There Any Guns Present In Your Home? No MIGRATION.030 098261 Information not available 10/22/2022 Do You Use Insect Repellent Routinely? No MIGRATION.030 085351 Information not available 10/22/2022 Where Do You Live? SingleLevelHouse With Basement Information not available 12/11/2022 Presence Of Domestic Violence No Information not available 12/11/2022 Guns Present In The Home? No Information not available 12/11/2022 Are You Able To Care For Yourself? Yes Information not available 12/11/2022 Are You Blind Or Do Yo Have Difficulty Seeing? No Information not available 12/11/2022 Are You Deaf Or Do You Have Serious Difficulty Hearing? Yes Wears Hearing Aids Information not available 12/11/2022 General Stress Level? Low Information not available 12/11/2022 Live Alone Of With Others? With Others Information not available 12/11/2022 Do You Have A Medical Power Of Adoption Agent? Yes MIGRATION.0301 [id number] Information not available 10/22/2022 What Was The Date Of Your Most Recent Tobacco Screening? 04/09/2023 [email or web address] Information not available 04/09/2023 Do You Have Any Pets? No MIGRATION.0301 335843 Information not available 10/22/2022 What Is Your Relationship Status? MIGRATION.0301 311946 Information not available 10/22/2022 Do You Use Your Seat Belt Or Car Seat Routinely? Yes MIGRATION.0301 865840 Information not available 10/22/2022 Do You Have Smoke And Carbon Monoxide Detectors In Your Home? Yes MIGRATION.0301 492396 Information not available 10/22/2022 Are You Passively Exposed To Smoke? No MIGRATION.0301 301236 Information not available 10/22/2022 Are There Any Smokers In Your House? No MIGRATION.0301 370438 Information not available 10/22/2022 How Much Tobacco Do You Smoke? No MIGRATION.0301 732300 Information not available 10/22/2022 What Types Of Sporting Activities Do You Participate In? None MIGRATION.0301 473013 Information not available 10/22/2022 Do You Use Sunscreen Routinely? No MIGRATION.0301 390823 Information not available 10/22/2022 Has Tobacco Cessation Counseling Been Provided? No Not Needed-nev er Smoked MIGRATION.0301 035569 Information not available 10/22/2022 How Many Years Have You Smoked Tobacco? 0 MIGRATION.0301 557325 Information not available 10/22/2022 Have You Recently Traveled Abroad? No MIGRATION.0301 690620 Information not available 10/22/2022 Do You Have Difficulty Walking Or Climbing Stairs? Yes MIGRATION.0301 935299 Information not available 10/22/2022 Do You Have Any Dietary Restrictions? No MIGRATION.0301 622989 Information not available 10/22/2022 Sex: Male Functional Status Question Answer Note LastModified by Organizat ion Details LastModified Time Do you use any illicit or recreational drugs? No MIGRATION.90453 23438 Information not available 10/22/2022 Do you or have you ever used any other forms of tobacco or nicotine? No MIGRATION.83355 13293 Information not available 10/22/2022 What is your level of alcohol consumption? None MIGRATION.53440 28145 Information not available 10/22/2022 Do you or have you ever used smokeless tobacco? Never used smokeless tobacco MIGRATION.86606 32640 Information not available 10/22/2022 Do you have transportation difficulties? No MIGRATION.89776 99878 Information not available 10/22/2022 Are you able to walk? YESASSIST uses cane MIGRATION.51344 24149 Information not available 10/22/2022 Do you have difficulty doing errands alone? No MIGRATION.47411 94360 Information not available 10/22/2022 Are you able to care for yourself? Yes MIGRATION.21640 18319 Information not available 10/22/2022 What is your occupation? retired MIGRATION.42566 94301 Information not available 10/22/2022 Do you have difficulty dressing or bathing? No MIGRATION.94327 86037 Information not available 10/22/2022 Do you or have you ever used e-cigarettes or vape? Never used electronic cigarettes MIGRATION.59480 58177 Information not available 10/22/2022 What is your exercise level? Occasional MIGRATION.64471 53501 Information not available 10/22/2022 Mental Status Question Answer Note LastModified by Organizat ion Details LastModified Time Do you feel stressed (tense, restless, nervous, or anxious, or unable to sleep at night)? [id number] MIGRATION.89474381 26 Information not available 10/22/2022 Do you have difficulty concentrating, remembering or making decisions? No MIGRATION.05769337 26 Information not available 10/22/2022 Family History Relationship Description Onset Age of this Age Resolved Age Notes LastModified by Organization Details LastModified Time Father Malignant neoplastic disease MIGRATION.741 [id number] Not available 10/22/2022 04:42:14 Mother Malignant neoplastic disease MIGRATION.751 [id number] Not available 10/22/2022 04:42:14 Medical History Condition Response NERVE DISEASE N BLINDNESS N RHEUMATIC FEVER N KIDNEY STONES Y BLADDER PROBLEMS N MRSA N OTHER # 1 N POLIO N LUNG DISEASE/DISORDER N RADIATION / CHEMOTHERAPY N COPD N Other # 2 N BLOOD DISEASES N EAR OR HEARING PROBLEMS N MUMPS N BOWEL PROBLEMS N DEPRESSION (INCLUDING POST ) N STROKE/TIA N ULCERS N BENIGN PROSTATIC HYPERPLASIA Y MEASLES N MYOCARDIAL INFARCTION N OBESITY N GERD/NAUSEA N ANEURYSM N URINARY/BLADDER/KIDNEY PROBLEMS N CORONARY ARTERY DISEASE (CAD) N ADDICTION CONCERNS N ENDOMETRIOSIS N Impotence N USE OF BLOOD THINNERS N SKIN PROBLEMS N GASTROINTESTINAL DISORDER N PERIPHERAL VASCULAR DISEASE N MUSCLE,JOINT OR BONE PROBLEMS N GASTROINTESTINAL BLEEDING N BLOOD CLOTS N ASTHMA N CATARACTS N ERECTILE DYSFUNCTION N VARICOSITIES N GI PROBLEMS N Low Testosterone N INFERTILITY N AIDS/HIV N CHEMOTHERAPY / RADIATION N LIVER DISEASE N MALE HYPOGONADISM N HYPERTENSION Y Deficiency N TOURETTE'S N ANXIETY DISORDER N BLOOD TRANSFUSION N ANEMIA/BLOOD DISORDER N CHRONIC EAR INFECTIONS N BRONCHITIS N TUBERCULOSIS N GLAUCOMA N FOOT PROBLEM N DIVERTICULITIS N SLEEP APNEA N CHICKENPOX N INFECTIOUS DISEASE N HEART ARRHYTHMIA N PROSTATE N INSOMNIA N HIGH CHOLESTEROL / HYPERLIPIDEMIA Y HYPERTHYROIDISM N EYE PROBLEMS N EDEMA N CHRONIC PAIN SYNDROME N HYPOTHYROIDISM N CAROTID BLOCKAGE N CONSTIPATION N BACK / NECK PROBLEMS N HAVE YOU BEEN HOSPITALIZED OR SEEN IN [facility] IN THE PAST YEAR ? N ATHEROSCLEROSIS N BREAST PROBLEMS N DIALYSIS N ECZEMA N OSTEOPOROSIS N ARTHRITIS Y APPENDICITIS N DIABETES, TYPE N BAD TEETH N ENT N HEARTBURN / REFLUX N AUTISM SPECTRUM DISORDER (ASD) N HEPATITIS / LIVER DISEASE N GOUT N SLEEP DISORDER N ALZHEIMER'S DISEASE N Brain Problems N HERPES N DEMENTIA N HEADACHES/MIGRAINES N SEIZURES/EPILEPSY N VASCULAR DISEASE N PACEMAKER N Blood Disorder N DIZZINESS N HEART DISEASE/HEART PROBLEMS N KIDNEY DISEASE N MULTIPLE SCLEROSIS N CARDIAC ARRHYTHMIA N CANCER: SPECIFY Y ATRIAL FIBRILLATION N Gall Stones N PULMONARY EMBOLISM N AUTOIMMUNE DISEASE N Immunizations Vaccine Type Date Status Note Provider Nam e and Address Organization Details Recorded Time Influenza, high-dose, quadrivalent, PF 3 completed Not Available [facility] 08/11/2023 05:06:46 COVID-19, mRNA, LNP-S, PF, 30 mcg/0.3 mL dose 4 completed TREY [place], [place] [facility] 08/27/2023 09:42:28 Pneumococcal conjugate PCV20, polysaccharide [id number] conjugate, adjuvant, PF 3 completed Shine Garcia MD [address] [facility], [place] [address], [place], [address], [facility] 12/11/2022 21:54:00 COVID-19, mRNA, LNP-S, PF, 100 mcg/0.5mL dose or 50 mcg/0.25mL dose 1 completed Not Available [facility] 08/11/2023 05:06:46 COVID-19, mRNA, LNP-S, PF, 100 mcg/0.5mL dose or 50 mcg/0.25mL dose 1 completed Not Available [facility] 08/11/2023 05:06:46 Influenza, high-dose, trivalent, PF 9 completed Not Available [facility] 08/11/2023 05:06:46 influenza, unspecified formulation 8 completed Not Available [facility] 08/11/2023 05:06:46 Influenza, high-dose, trivalent, PF 7 completed Not Available [facility] 08/11/2023 05:06:46 Influenza, high-dose, trivalent, PF 6 completed Not Available [facility] 08/11/2023 05:06:46 COVID-19, mRNA, LNP-S, PF, 100 mcg/0.5mL dose or 50 mcg/0.25mL dose 2 completed Not Available [facility] 08/11/2023 05:06:46 Influenza, high-dose, quadrivalent, PF 2 completed Not Available [facility] 08/11/2023 05:06:46 COVID-19, mRNA, LNP-S, PF, 100 mcg/0.5mL dose or 50 mcg/0.25mL dose 1 completed Not Available [facility] 08/11/2023 05:06:46 Influenza, split virus, trivalent, preservative 1 completed Not Available [facility] 08/11/2023 05:06:47 influenza, unspecified formulation 5 completed Not Available [facility] 08/11/2023 05:06:46 Past Encounters Encounter ID Performer Location Encounter Start Date Encounter Closed Date Diagnosis/Indication Diagnosis SNOMED-CT Code Diagnosis ICD10 Code Diagnosis Note [id number] Shine Garcia MD [facility] Internal Med Benjamin osborn [address] [place] [address] [place] [address] 01/03/2021 00:00:00 01/06/2021 18:03:[id number] [facility] Internal Med Benjamin osborn [address] [place] [address] [place] [address] 05/09/2021 00:00:00 06/02/2021 21:22:54 [id number] [facility] Internal Med Benjamin osborn [address] [place] [address] [place] [address] 09/05/2021 00:00:00 09/05/2021 23:04:32 [id number] [facility] Internal Med Benjamin osborn [address] [place] [address] y , [place] [address] 01/02/2022 00:00:00 02/03/2022 22:33:27 [id number] Ash markham MD [facility] General Surgery [address] [address] 04/03/2022 00:00:00 04/03/2022 14:01:40 [id number] [facility] Internal Med Benjamin osborn [address] [place] [address] [place] [address] 05/01/2022 00:00:00 05/11/2022 11:01:04 [id number] [facility] Internal Med Benjamin sandhue [address] [place] [address] [place] [address] 12/11/2022 10:57:29 12/11/2022 12:06:46 Adult health examination 790422687 Z00.00 Screening for disorder 842448701 Z13.9 Benign ess ential hypertension 7997195 I10 Hypothyroidism 69213280 E03.9 Administra tion of pneumococcal vaccine 89984487 Z23 Pure hypercholesterolemia 216205071 E78.00 Renal cell carcinoma 702 259617 C64.9 [id number] [facility] Internal Med [place] [address] [place] [address] [place] [address] 04/09/2023 10:46:39 04/09/2023 11:33:36 Pure hypercholesterolemia 824828509 E78.00 Benign ess ential hypertension 8412004 I10 Hypothyroidism 01851479 E03.9 Obesity 068132275 E66.9 [id number] [facility] Internal Med Андрей ean [address] [facility] [place] [address] 08/06/2023 11:06:47 08/06/2023 12:00:43 Hyperglycemia 57659640 R73.9 Screening for malignant neoplasm of prostate 582114025 Z12.5 Low back pain 648180933 M54.50 Malignant tumor of breast 508239468 C50.929 Obesity 846806895 E66.9 Pure hypercholesterolemia 367571350 E78.00 Renal cell carcinoma 702 344287 C64.9 Benign ess ential hypertension 8384528 I10 Hypothyroidism 50852871 E03.9 Sleep apnea 33863211 G47 .30 Health Concerns Section Related Observation LastModified by Organization Detai ls LastModified Time None Recorded Concern Status LastModified by Organization Details LastModified Time None Recorded Advance Directives Directive Y: Payers Encounter Date Sequence Insurance Name Policy Number Policy [place] Covered Member ID [place] Member ID Guarantor Name 12/11/2022 1 [facility] (MEDICARE REPLACEMENT/A DVANTAGE - PPO) [id number] Ron Turner [id number] Ron Turner 04/09/2023 1 [facility] (MEDICARE REPLACEMENT/A DVANTAGE - PPO) [id number] Ron Turner [id number] Ron Turner 08/06/2023 1 [facility] (MEDICARE REPLACEMENT/A DVANTAGE - PPO) [id number] Ron Turner [id number] Ron Turner Notes Date Note Type Note Provider Name and Address Organization Details Recorded Time 12/11/2022 text/html 1. Sleep apnea h e is using CPAP and gaining benefit2. Hyperlipidemia does try to watch his diet3. Renal cell carcinoma no blood in his urine no abdominal or flank pain4. Hypothyroid is no heat or cold intolerance5. Chronic low back pain stable6. History of breast cancer he has not had any pain or has felt any evidence of recurrent7. Hypertension no headache no dizziness8. Obesity trouble losing weight Shine Garcia MD [address] [employer], [place], [address], [facility] 12/11/2022 21:54:03 04/09/2023 text/html 1. Sleep apnea benny neal is using CPAP and gaining benefit2. Hyperlipidemia does try to watch his diet3. Renal cell carcinoma no blood in his urine no abdominal or flank pain4. Hypothyroid is no heat or cold intolerance5. Chronic low back pain stable6. History of breast cancer he has not had any pain or has felt any evidence of recurrent7. Hypertension no headache no dizziness8. Obesity trouble losing weight Shine Garcia MD [address], [address], [place], [address], [facility] 04/09/2023 22:41:26 08/06/2023 text/html 1. Sleep apnea benny neal is using CPAP and gaining benefit2. Hyperlipidemia does try to watch his diet3. Renal cell carcinoma no blood in his urine no abdominal or flank pain4. Hypothyroid is no heat or cold intolerance5. Chronic low back pain stable6. History of breast cancer he has not had any pain or has felt any evidence of recurrent7. Hypertension no headache no dizziness8. Obesity trouble losing weight9. Blood work glucose 164 nonfasting needs hemoglobin A1c Shine Garcia MD [address], [address], [place], [address], [facility] 08/07/2023 09:23:55
--- OUTSIDE RECORDS SUMMARY | 2025-01-30 12:58 | XMS_ITS | Continuity of Care Document ---
Author Organization [facility] Address [address] [place] [address] Phone Care Team Providers Care Director Of Rehabilitation And Wellness Name Role Phone Lance Padilla MD Unavailable Allergies, Adverse Reactions, Alerts Substance Reaction Status Criticality No Known Drug Allergies Other Active No I nformation Medications Medication Instructions Dosage Effective Dates (start - stop) Status Comments FLUOCINONIDE-E 0.05% CREAM APPLY TO TRUNK, ARMS AND LEGS TWO TIMES A DAY 0.00 - Active Vasotec 20 mg tablet take 1 tablet (20MG) by oral route 2 times every day 20 MG - Active triamterene 37.5 mg-hydrochlorothi azide 25 mg tablet take 1 tablet by oral route every day 1.00 tablet - Active Synthroid 125 mcg tablet take 1 tablet (125MCG) by oral route every day 125 MCG - Active generic okay Proscar 5 mg tablet take 1 tablet (5MG) by oral route every day 5 MG - Active Mevacor 40 mg tablet take 1 tablet (40MG) by oral route every day with the evening meal - Active amlodipine 10 mg tablet take 1 tablet by oral route every day 10 MG - Active Fluocinonide-E 0.05 % topical cream apply by topical route 2 times every day to the affected area(s) 0.00 - No Longer Active please give 3tubes Advance Directives Directive Yes / No Effective Date File Name No Information Encounters Encounter Description Practice Location Reason(s) For Visit Diagnoses Date Provider Providers Copied on Encounter [facility], [address], [place], [place], [address] , tel:[phone] [facility] No Information 6 Valerie Lucas. [address], [place], [place], [address]. tel:[phone] [facility], [address], [place], [place], [address] , tel: [phone] [facility] No Information 5 Valerie Lucas. [address], [place], [place], [address]. tel: [phone] [facility], [address], [place], [place], [address] , [place] tel: [phone] [facility] Unspecified essential hypertensionUnspeci fied acquired hypothyroidismObstr uctive sleep apnea on CPAPObesity, Class II, BMI 35-39.9, with comorbidityHyperlip idemiaElevated PSABenign prostatic hypertrophy with lower urinary tract symptoms (LUTS) 4 Valerie Lucas. [address], [place], [place], [address]. tel:[phone] Referring Provider: Lance Mcdonnell, [address], [place], [address] . tel:[phone] [facility], [address], [place], [place], [address] , [place] tel: [phone] [facility] History of fall/At Risk For FallingScreening for unspecified conditionUnspecifie d essential hypertensionProstat ismOsteoarthrosis, generalized, involving unspecifiedHyperlip idemiaElevated PSAObstructive sleep apnea on CPAPHistory of adenomatous polyp of colonObesity, Class II, BMI 35-39.9, with comorbidity 4 Valerie Lucas. [address], [place], [place], [address]. tel:[phone] Referring Provider: Lance Mcdonnell, [address], [place], [address] . tel:[phone] [facility], [address], [place], [place], [address] , tel: [phone] [facility] IM Sleep Apnea 4 Valerie Lucas. [address], [place], [place], [address]. tel:[phone] [facility], [address], [place], [place], [address] , tel: [phone] [facility] Obstructive sleep apnea (adult) (pediatric)HTNObesi ty 3 Tello Blair. [address], [place], [place], [address], [place]. tel:[phone] Referring Provider: Lance Mcdonnell, [address], [place], [address] . tel:[phone] [facility], [address], [place], [place], [address] , tel: [phone] [facility] No Information 3 Valerie Lucas. [address], [place], [place], [address]. tel:[phone] [facility], [address], [place], [place], [address] , tel: [phone] [facility] No Information 3 Valerie Lucas. [address], [place], [place], [address]. tel:[phone] [facility], [address], [place], [place], [address] , tel: [phone] [facility] Unspecified essential hypertensionUnspeci fied acquired hypothyroidismOsteo arthrosis, generalized, involving unspecifiedElevated PSAProstatismObesit y (BMI 30-39.9)Hyperlipide ramandeep 3 Valerie Lucas. [address], [place], [place], [address]. tel:[phone] Referring Provider: Lance Mcdonnell, [address], [place], [address] . tel:[phone] [facility], [address], [place], [place], [address] , tel: [phone] [facility] IM No Information 2 Valerie Lucas. [address], [place], [place], [address]. tel:[phone] [facility], [address], [place], [place], [address] , tel: [phone] [facility] IM Urinary calculus, unspecified 2 Valerie Lucas. [address], [place], [place], [address]. tel:[phone] Referring Provider: Lance Mcdonnell, [address], [place], [address] . tel:[phone] [facility], [address], [place], [place], [address] , tel: [phone] [facility] IM Unspecified essential hypertensionOther and unspecified hyperlipidemiahypot hyroidismOsteoarthr osis, generalized, involving unspecifiedElevated PSAPersonal history of colonic polyps 2 Valerie Lucas[address], [place], [place], [address]. tel:[phone] Referring Provider: Lance Mcdonnell, [address], [place], [address] . tel:[phone] [facility], [address], [place], [place], [address] , tel: [phone] [facility] IM No Information 1 Valerie Lucas. [address], [place], [place], [address]. tel:[phone] [facility], [address], [place], [place], [address] , [place] tel: [phone] [facility] IM Other and unspecified hyperlipidemiaUnspe cified essential hypertensionScreeni ng for malignant neoplasms of the prostatehypothyroid ismHyperplasia of prostatePersonal history of colonic polyps 1 Valerie Lucas. [address], [place], [place], [address]. tel:[phone] Referring Provider: Lance Mcdonnell, [address], [place], [address] . tel:[phone] [facility], [address], [place], [place], [address] , tel: [phone] [facility] IM PURE HYPERCHOLESTEROLEMH YPERTENSION NOSSLEEP APNEA NOSHEADACHE Sep-2 0-201 0 Val[address], [place], [place], [address]. tel: [phone] [facility], [address], [place], [place], [address] , tel: [phone] [facility] IM IMPACTED CERUMENBENIGN HYPERTENSIONMALAISE AND FATIGUE NECELVTD [facility] ANTGN 9-201 0 Val[address] Lucas[address], [place], [place], [address]. tel: [phone] [facility] [facility], [address], [place], [place], [address] , tel: [phone] [facility] HYPOTHYROIDISM NOSSCRN MALIG NEOP-PROSTATE [address], [place], [place], [address]. tel: [phone] [facility], [address], [place], [place], [address] , [place] tel: [phone] [facility] IM MIRIAM HY KID W CR KID I-IVSLEEP DISTURBANCE NOSURINARY CALCULUS NOS 8 Valerie Lucas[address], [place], [place], [address]. tel: [phone] [facility], [address], [place], [place], [address] , tel: [phone] [facility] IM WHIZZER HAND KIDNEY DIS STAGE IICHR KIDNEY DIS STAGE IIIPROSTATITIS NOS 9200 7 Valerie Lucas. [address], [place], [place], [address]. tel: [phone] [facility], [address], [place], [place], [address] , tel: [phone] [facility] IM MIRIAM HYP KID W CR KID VLONG-TERM USE MEDS NECSCREEN MAL NEOP-RECTUMHEMATURI A 8200 6 Valerie Lucas[address], [place], [place], [address]. tel: [phone] [facility], [address], [place], [place], [address] , [place] tel:[phone] [facility] IM VACCIN FOR INFLUENZAND VAC STRPTCS PNEUMNI B Jun-0 2-[address], [place], [place], [address]. tel: [phone] [facility], [address], [place], [place], [address] , [place] tel:[phone] [facility] IM GENERAL OSTEOARTHROSIS Nov-2 9-[address], [place], [place], [address]. tel:[phone] [facility], [address], [place], [place], [address] , [place] tel:[phone] [facility] IM OTHER ATOPIC DERMATITIS May-[address], [place], [place], [address]. tel:[phone] [facility], [address], [place], [place], [address] , [place] tel:[phone] [facility] IM ACUTE URI NOS Nov-2 1-[address], [place], [place], [address]. tel:[phone] [facility], [address], [place], [place], [address] , [place] tel:[phone] [facility] IM MALIG FIFI SKIN NEC 7200 3 [employer] [facility]. [address] [facility], [place], [address], [place]. [facility], [address], [place], [place], [address] , [place] tel:[phone] [facility] IM VACCIN FOR INFLUENZA May-[address], [place], [place], [address]. tel: [phone] [facility], [address], [place], [place], [address] , [place] tel:[phone] [facility] IM CARPAL TUNNEL SYNDROME Apr-2 4-[address], [place], [place], [address]. tel:[phone] [facility], [address], [place], [place], [address] , tel: [phone] [facility] IM ACUTE STRESS REACT NOS 5-[address], [place], [place], [address]. tel:[phone] [employer] [facility], [address], [place], [place], [address] , tel: [phone] [facility] IM AC SEROUS OTITIS MEDIAFLU W RESP MANIFEST NEC 0-[address], [place], [place], [address]. tel:[phone] [facility], [address], [place], [place], [address] , tel: [phone] [facility] IM LUMBAGO 6-[address], [place], [place], [address]. tel:[phone] Family History Family Member Type Diagnosis Age At Onset Mother Problem (finding) malignant neop lasm of breast in first degree relative Father Problem (finding) malignant neoplasm of b one Immunizations Vaccine Date Status Comments Influenza, seasonal, injecta ble (3 yrs or older) administered Note: [facility] ; Source: Source Unspecified influenza, injectable, quadrivalent, (3 years or older) administered Note: [facility] ; Source: Public Agency flu (split) (3 yrs or older) administered Source: Source Unspecified flu (split) (3 yrs or older) administered Source: Public Agency flu (split) (3 yrs or older) preservative free administered Source: Other Provid er 57657 - Influenza administered Source: [place] Unspecified 48373 - Influenza administered Source: [place] Unspecified 55504 - Pneumococcal_PPV23 administered S ource: Source Unspecified 13920 - Influenza administered Source: [place] Unspecified 04107 - Influenza administered Source: [place] Unspecified 68853 - Influenza administered Source: [place] Unspecified Payers Payer name Insurance type Covered republican ID Authoriza tikory(s) MEDICARE [id number] [facility] [id number] Social History Type Description Quantity Date Captured Comments Sex Male Smoking Status No Information Chief Complaint And Reason For Visit No Information Reason For Referral Reason For Referral No Information History Of Present Illness Encounter Date Complaint History Of Prese nt Illness No Information Functional Status Date Functional Assessmen t No Information Instructions Date Instruction Additional Infor mation No Information Assessments Type Assessment Date No Information Patient Care Teams Name Effective Dates (start - stop) Status Members No Information
--- OUTSIDE RECORDS SUMMARY | 2025-01-30 12:59 | XMS_ITS | Referral Summary ---
Author Organization [facility] Address [facility] [place] [address] Care Team Providers Care Die Designer Name Role Phone Sherman Garcia MD Primary Care Provider [phone] Do Muller PROGRAM SCHEDULER Unavailable [phone] Allergies Active Allergy Reactions Criticality Noted Date [...] SARS-CoV-2 Monovalen t Vaccination (12+ YRS) 07/30/2021,12/07/2020,11/02/2020 Social History Tobacco Use Types Packs/Day Years [...] 06/16/2023 2:17 PM CDT Plan of Treatment Not on file Insurance [employer] MEDICARE ADVANTAGE Care Teams Die Designer Relationship Specialty Start Date End Date Sherman Garcia MD PCP - General 04/17/17 Do Muller NP [address] [place] [address] Nurse Practitioner Medical Oncology 04/30/22
--- OUTSIDE RECORDS SUMMARY | 2025-01-30 12:59 | XMS_ITS | Encounter Summary ---
Author Organization [facility] Address [address] [place] [address] Care Team Providers Care Monotype Machinist Name Role Phone Sherman Garcia MD Primary Care Provider [phone] Encounter Details Date Type Department Care Team (Late st Contact Info) Description 11/16/2023 Lab Requisition [facility] - DermPath Lab [address] [place] [id number] Law Gutiérrez MD [address] [place] [address] Social History Tobacco Use Types [...] Priority Date/Time Associated Diagnosis Comments DERMATOPATHOLOGY Routine 11/16/2023 12:0 0 AM CDT documented in this encounter Results * DERMATOPATHOLOGY (11/16/2023 12:00 AM CDT) Case Report Dermatopathology Report Case: [id number] Authorizing Provider: Law Gutiérrez MD Collected: 11/16/2023 12:00 AM Ordering Location: [facility] - Received: 11/16/2023 03:57 PM DermPath Lab Pathologist: Donna Romeo MD Specimens: A) - Skin, left anti helix B) - Skin, nasal bridge C) - Skin, left supra ala D) - Skin, right nasal ala 4:48 PM CDT DERMATOPATHOLOGY LABORATORY Amended Report Clerical error in laboratory, change in diagnosis code at the request of the clinicians office. A: C44.219, B: D04.39,C:C44.311,& D:C44.311 4:48 PM CDT DERMATOPATHOLOGY LABORATORY Final Diagnosis Specimen A. 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 SKIN, nasal bridge: SQUAMOUS CELL CARCINOMA IN SITU, PRESENT AT THE BASE OF THE SPECIMEN (D04.39) (see microscopic description and comment) Specimen C. 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 The specimen consists of a three pieces shave biopsy measuring 4x2x1, 5x5x2, 2x2x1 mm. Jar 0+. Specimen B: Received is one formalin filled container labeled with the patient's name and designated nasal bridge. The specimen consists of a two pieces shave biopsy measuring 2x1x1, 8x4x1 mm. Jar 0. Specimen C: Received is one formalin filled container labeled with the patient's name and designated left supra ala. The specimen consists of a shave biopsy measuring 5x5x1 mm. Jar 0+. Specimen D: Received is one formalin filled container labeled with the patient's name and designated right nasal ala. The specimen consists of a shave biopsy measuring 3x3x2, 3x3x3 mm. Jar 0. 4:48 PM CDT DERMATOPATHOLOGY LABORATORY Microscopic Description Specimen A. SKIN, left anti helix: Within the dermis there are aggregates of basaloid cells with a high nuclear to cytoplasmic ratio and peripheral palisading. Specimen B. SKIN, nasal bridge: The epidermis shows parakeratosis, full thickness disorderly maturation of keratinocytes, mitoses at different levels, and dyskeratotic cells. The lesion extends to the base of the biopsy. COMMENT: An invasive squamous cell carcinoma cannot be ruled out. Specimen C. SKIN, left supra ala: Within the dermis there are aggregates of basaloid cells with a high nuclear to cytoplasmic ratio and peripheral palisading. Specimen D. SKIN, right nasal ala: Within the dermis there are nodular aggregates of basaloid cells associated with fibromyxoid stroma and epithelial-stromal clefts. At the advancing margin of the neoplasm, there are smaller angulated nests that infiltrate the dermis. 4 4:48 PM CDT DERMATOPATHOLOGY LABORATORY Disclaimer An external and internal positive and negative controls are appropriate for the histochemical, immunohistochemical and immunofluorescence stain(s) in this case (if any), except where stated explicitly. The performance characteristics of the stain(s) cited in this report were developed and its performance characteristic determined by the Dermatopathology Laboratory at [facility], directed by Dr. Jennifer Pichardo. These tests need not be, and therefore are not, approved by the [place] Food and Drug Administration. The tests are used for clinical purposes. Billing Codes Specimen Charges Stain Charges 20424 54662 84947 14565 1 1 1 1 4 4:48 PM CDT DERMATOPATHOLOGY LABORATORY Embedded Images 4 4:48 PM CDT DERMATOPATHOLOGY LABORATORY Pathology/Cytology TISSUE SPECIMEN FROM SKIN / Unknown 11/16/2023 11/16/2023 3:57 PM CDT Miscellaneous samples (specimen) TISSUE SPECIMEN FROM SKIN / Unknown 11/16/2023 11/16/2023 3:57 PM CDT Miscellaneous samples (specimen) TISSUE SPECIMEN FROM SKIN / Unknown 11/16/2023 11/16/2023 3:57 PM CDT Miscellaneous samples (specimen) TISSUE SPECIMEN FROM SKIN / Unknown 11/16/2023 11/16/2023 3:57 PM CDT Law Gutiérrez MD LAB - PATHOLOGY/CYTOLOGY ORDERAB LES Edited Result - Final DERMATOPATHOLOGY LABORATORY [facility] - Department of Dermatology [address], [address] [phone] documented in this encounter Visit Diagnoses Not on filedocumented in this encounter Care Teams Monotype Machinist Relationship Specialty Start Date End Date Sherman Garcia MD PCP - General 06/19/22 documented as of this encounter
--- OUTSIDE RECORDS SUMMARY | 2025-01-30 12:59 | XMS_ITS | Encounter Summary ---
Author Organization [facility] Address [address] [place] [address] Care Team Providers Care Jewish History Professor Name Role Phone Sherman Garcia MD Primary Care Provider [phone] Encounter Details Date Type Department Care Team (Late st Contact Info) Description 02/12/2023 Lab Requisition [facility]ermPath Lab [address] [place] [phone] Law Gutiérrez MD [address] [place] [address] Social History Tobacco Use Types [...] Priority Date/Time Associated Diagnosis Comments DERMATOPATHOLOGY Routine 02/12/2023 12:0 0 AM CDT documented in this encounter Results * DERMATOPATHOLOGY (02/12/2023 12:00 AM CDT) Case Report Dermatopathology Report Case: [id number] Authorizing Provider: Law Gutiérrez MD Collected: 02/12/2023 12:00 AM Ordering Location: [facility] Received: 02/12/2023 04:59 PM Pathologist: Donna Romeo MD Specimens: A) - Skin, right zygomatic B) - Skin, left sup shoulder 5:20 PM CDT DERMATOPATHOLOGY LABORATORY Final Diagnosis Specimen A. 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 SKIN, left sup shoulder: SEBORRHEIC KERATOSIS, INFLAMED (L82.0) ACTINIC KERATOSIS (L57.0) 3 5:20 PM T DERMATOPATHOLOGY LABORATORY at 1720 CDT Clinical History A: erosion/BCC check margin B: nodule/BCC 3 5:20 PM CDT DERMATOPATHOLOGY LABORATORY Gross Description Specimen A: Received is one formalin filled container labeled with the patient's name and designated right zygomatic. The specimen consists of a shave biopsy measuring 9x8x2 mm. Jar 0. Specimen B: Received is one formalin filled container labeled with the patient's name and designated left sup shoulder. The specimen consists of a shave biopsy measuring 05y34h3 mm. Jar 0. 3 5:20 PM CDT DERMATOPATHOLOGY LABORATORY Microscopic Description Specimen A. SKIN, right zygomatic: Within the dermis there are nodular aggregates of basaloid cells associated with fibromyxoid stroma and epithelial-stromal clefts. At the advancing margin of the neoplasm, there are smaller angulated nests that infiltrate the dermis. This lesion is present at the margin of the specimen. Specimen B. SKIN, left sup shoulder: There is hyperkeratosis, parakeratosis, papillomatosis, and acanthosis of the epidermis. There is a lymphohistiocytic infiltrate within the papillary dermis that is focally lichenoid. There is adjacent focal parakeratosis. The lower half of the epidermis shows disorderly maturation of keratinocytes with nuclear pleomorphism. 3 5:20 PM CDT DERMATOPATHOLOGY LABORATORY Disclaimer An external and internal positive and negative controls are appropriate for the histochemical, immunohistochemical and immunofluorescence stain(s) in this case (if any), except where stated explicitly. The performance characteristics of the stain(s) cited in this report were developed and its performance characteristic determined by the Dermatopathology Laboratory at [facility], directed by Dr. Jennifer Pichardo. These tests need not be, and therefore are not, approved by the [place] Food and Drug Administration. The tests are used for clinical purposes. Billing Codes Specimen Charges Stain Charges 01140 89908 1 1 3 5:20 PM CDT DERMATOPATHOLOGY LABORATORY Embedded Images 3 5:20 PM CDT DERMATOPATHOLOGY LABORATORY Pathology/Cytology TISSUE SPECIMEN FROM SKIN / Unknown 02/12/2023 02/12/2023 4:59 PM CDT Miscellaneous samples (specimen) TISSUE SPECIMEN FROM SKIN / Unknown 02/12/2023 02/12/2023 4:59 PM CDT us Law Gutiérrez MD LAB - PATHOLOGY/CYTOLOGY ORDERAB LES Final Result DERMATOPATHOLOGY LABORATORY [facility] - Department of Dermatology [facility] [address] [place] [address], [address] [phone] documented in this encounter Visit Diagnoses Not on filedocumented in this encounter Care Teams Jewish History Professor Relationship Specialty Start Date End Date Sherman Garcia MD PCP - General 06/19/22 documented as of this encounter
--- OUTSIDE RECORDS SUMMARY | 2025-01-30 12:59 | XMS_ITS | Clinical Summary ---
Author Organization [facility] Address [address] [place] [address] Care Team Providers Care Irish Moss Gatherer Name Role Phone Sherman Garcia MD Primary Care Provider Source Comments [facility],non-owned Affiliates and Associated Physician Practices is amultiple site organization consisting of ambulatory clinics and hospital sitesin [place], [place], [place] and [place]. This disclosure is being madepursuant to the Care Everywhere program and may not contain all information available regarding this patient. Last updated 18.[facility] Social History Tobacco Use Types Packs/Day Years Used Date Smoking Tobacco: Never Assessed Sex and Gender Information Value Date Recorded Sex Assigned at Not on file Legal Sex Male 7:01 AM CDT Gender Identity Not on file Sexual Orientation Not on file Plan of Treatment Health Maintenance Due Date Last Done Comments DTAP/TDAP/TD VACCINES (1 - Tdap) 1958 PNEUMOCOCCAL VACCINE 50+ (1 of 1 - PCV) 1989 ZOSTER VACCINE (1 of 2) 1989 Respiratory Syncytial Virus (RSV) Vaccine Pt: or over 60 yrs (1 - 1-dose 75+ series) 2014 COVID-19 VACCINE ( - 2023-2 5 season) 2024 DEPRESSION SCREENING 08/24/2024 MEDICARE AWV CALENDAR YEAR 2024 INFLUENZA VACCINE (Season Ended) 2025 HEPATITIS B VACCINE Aged Out No longe r eligible based on patient's age to complete this topic HIB VACCINE Aged Out No longer eligi ble based on patient's age to complete this topic HPV VACCINE Aged Out No longer eligi ble based on patient's age to complete this topic MENINGOCOCCAL (Group B) VACC INE SHARED DECISION-MAKING Aged Out No longer eligibl e based on patient's age to complete this topic MENINGOCOCCAL GROUPS A/C/Y/W VACCINE Aged Out No longer eligible b ased on patient's age to complete this topic Insurance [place] [id number] Care Teams Irish Moss Gatherer Relationship Specialty Start Date End Date Sherman Garcia MD PCP - General 06/19/22
--- OUTSIDE RECORDS SUMMARY | 2025-01-30 12:59 | XMS_ITS | Encounter Summary ---
Author Organization [facility] Address [address] [place] [address] Care Team Providers Care Flitch Hanger Name Role Phone Sherman Garcia MD Primary Care Provider [phone] Encounter Details Date Type Department Care Team (Late st Contact Info) Description 12/02/2023 Lab Requisition [facility] - DermPath Lab [address] [place] [id number] Law Gutiérrez MD [address] [place] [address] Social History Tobacco Use Types [...] Priority Date/Time Associated Diagnosis Comments DERMATOPATHOLOGY Routine 12/01/2023 12:0 0 AM CDT documented in this encounter Results * DERMATOPATHOLOGY (12/01/2023 12:00 AM CDT) Case Report Dermatopathology Report Case: [id number] Authorizing Provider: Law Gutiérrez MD Collected: 12/01/2023 12:00 AM Ordering Location: [facility] - Received: 12/03/2023 07:47 AM DermPath Lab Pathologist: Trice Fernando MD Specimens: A) - Skin, left anti helix B) - Skin, nasal bridge 1:22 PM CDT DERMATOPATHOLOGY LABORATORY Final Diagnosis Specimen A. SKIN, left anti helix: HYPERKERATOSIS (L85.9) (see microscopic description and comment) Specimen B. SKIN, nasal bridge: SOLAR ELASTOSIS (L57.8) 1:22 PM CDT DERMATOPATHOLOGY LABORATORY at 1322 CDT Clinical History A: BCC Bx Prove site [id number] B: SCC Bx site [id number] 1:22 PM CDT DERMATOPATHOLOGY LABORATORY Gross Description Specimen A: Received is one formalin filled container labeled with the patient's name and designated left anti helix. The specimen consists of a two pieces curettage and desiccation biopsy measuring 1x1x1, 2x1x1 mm. Jar 0+. Specimen B: Received is one formalin filled container labeled with the patient's name and designated nasal bridge. The specimen consists of a curettage and desiccation biopsy measuring 5x3x1 mm. Jar 0. 1:22 PM CDT DERMATOPATHOLOGY LABORATORY Microscopic Description Specimen A. SKIN, left anti helix: The specimen consisted mostly of stratum corneum which is moderately hyperkeratotic. There is minimal cellular epidermis and no dermis present for evaluation. COMMENT: An underlying process can not be excluded. Specimen B. SKIN, nasal bridge: The epidermis is unremarkable. The dermis shows a proliferation of elastic fibers in the superficial dermis that are increased in thickness. Tumor is not seen. 1:22 PM CDT DERMATOPATHOLOGY LABORATORY Disclaimer An external and internal positive and negative controls are appropriate for the histochemical, immunohistochemical and immunofluorescence stain(s) in this case (if any), except where stated explicitly. The performance characteristics of the stain(s) cited in this report were developed and its performance characteristic determined by the Dermatopathology Laboratory at [facility], directed by Dr. Jennifer Pichardo. These tests need not be, and therefore are not, approved by the [place] Food and Drug Administration. The tests are used for clinical purposes. Billing Codes Specimen Charges Stain Charges 94999 07622 1 1 1:22 PM CDT DERMATOPATHOLOGY LABORATORY Embedded Images 1:22 PM CDT DERMATOPATHOLOGY LABORATORY Pathology/Cytology TISSUE SPECIMEN FROM SKIN / Unknown 12/01/2023 12/03/2023 7:47 AM CDT Miscellaneous samples (specimen) TISSUE SPECIMEN FROM SKIN / Unknown 12/01/2023 12/03/2023 7:47 AM CDT us Law Gutiérrez MD LAB - PATHOLOGY/CYTOLOGY ORDERAB LES Final Result DERMATOPATHOLOGY LABORATORY [facility] - Department of Dermatology [facility] Medicine [address] [place] [address], [address] [phone] documented in this encounter Visit Diagnoses Not on filedocumented in this encounter Care Teams Flitch Hanger Relationship Specialty Start Date End Date Sherman Garcia MD PCP - General 06/19/22 documented as of this encounter
== END 2025-01-30 11:21 | disposition home or self-care (01) ==
PROVIDERS: PCP Internal Medicine; Visit Provider Internal Medicine
DX: M19.071 Primary osteoarthritis, right ankle and foot (principal)
CPT/HCPCS: 73660

== ENCOUNTER 2025-04-26 11:21 | Emergency (ER) | payer MEDICARE, SELFPAY ==
[2025-04-26 11:34] VITALS: BP 116/66; PULSE 97; RESP 16; TEMP 36.8; O2SAT 97
--- NOTE | 2025-04-26 11:47 | ED_ITS ---
HPI - Skin/Abscess/Foreign Bdy General Chief complaint: Skin/Abscess/Foreign Body Stated complaint: INSECT BITE Time Seen by Provider: 04/26/25 11:35 Source: patient and RN notes reviewed Mode of arrival: ambulatory Limitations: no limitations History of Present Illness HPI narrative: 84-year-old male presents Express Care complaining of rash to his arms and face and neck for approximally 5 days. Patient says he was bit or stung by something 5 days ago. Patient is unsure what it was. Patient denies any recent hiking or recent traveling in the [facility]. Patient denies any sick symptoms, fevers, bites, chills, muscle aches, nausea, vomiting, headaches, or any other symptoms. Patient said after he was bit by of an unknown insect he developed a pruritic rash to his arms, face, neck. Patient has been taking Benadryl without relief. Patient said this happened 15-20 years ago he was given a steroid shot went away. Related Data Home Medications ?Medication ?Instructions ?Recorded ?Confirmed ?Last Taken ?Type amlodipine 10 mg tablet 10 mg PO DAILY 04/26/2511/15 Unknown History enalapril maleate 20 mg tablet 20 mg PO Q24H 04/26/25 04/26/25 Unknown History ezetimibe 10 mg tablet 10 mg PO DAILY 04/26/2511/15 Unknown History finasteride 5 mg tablet 5 mg PO DAILY 04/26/2504/26 Unknown History levothyroxine 125 mcg tablet 125 mcg PO DAILY 04/26/25 04/26/25 Unknown History triamterene 37.5 1 tablet PO DAILY 04/26/25 0 04/26/25 Unknown History mg-hydrochlorothiazide 25 mg tablet Allergies Allergy/AdvReac Type Severity Reaction Status Date / Time levofloxacin Allergy Mild Rash Verified 04/26/25 11:30 latex Allergy Unknown Rash Verified 04/26/25 11:30 Review of Systems Review of Systems: CONSTITUTIONAL: Denies fever, chills, or sweats. EYES: Denies visual changes, redness, or discharge. ENT: Denies rhinorrhea, congestion, sore throat, or otalgia. CARDIOVASCULAR: Denies chest pain, palpitations, or edema. RESPIRATORY: Denies cough or dyspnea. GASTROINTESTINAL: Denies abdominal pain, nausea, vomiting, or diarrhea. GENITOURINARY: Denies dysuria or hematuria. SKIN: Positive for rash and itching. MUSCULOSKELETAL: Denies back pain, joint pain, or myalgia. NEUROLOGIC: Denies headache, numbness, or weakness. PSYCHIATRIC: Denies anxiety or depression. All other systems reviewed are negative, except as documented in HPI. [facility] Past Medical History Medical History Breast cancer, male Kidney stone Renal cancer Surgical History Surgical History H/O partial nephrectomy H/O mastectomy Social History Social History Smoking status: Never smoker Alcohol intake: never Substance use: never Living arrangements: alone Comments At the time of my signature, I reviewed and agree with the nursing past medical, surgical, social, and family history. There is no relevant family history pertinent to the patient complaint. Exam Narrative: GENERAL: This is a well-nourished, well-developed adult, in no apparent distress. They are non ill-appearing, nontoxic appearing. HEAD: normocephalic, atraumatic. EYES: Sclera clear/white. Conjunctiva normal. Vision is grossly intact. Extraocular movements intact EARS: External ears normal, Hearing grossly intact. NOSE: External nose normal THROAT: Mucous membranes NECK: Neck supple, CARDIOVASCULAR: Regular rate and rhythm RESPIRATORY: Respiratory rate normal, respiratory effort nonlabored, no respiratory distress SKIN: Erythematous macular papular rash scattered throughout the patient's arms, neck, and face. It is pruritic. Is nontender to palpate. No area of fluctuance, no induration, no exudate. NEURO: awake, alert, and oriented to person, place and time. There were no obvious focal neurologic abnormalities. EXTREMITIES: No joint tenderness, effusion, or edema noted. Course Course Emergency Course: Portions of this record may have been created with voice recognition software Level of Care: Express Care Visit Vital Signs Vital signs: Vital Signs Temperature 98.3 F 04/26/25 11:34 Pulse Rate 97 04/26/25 11:34 Respiratory Rate 16 04/26/25 11:34 Blood Pressure 116/66 04/26/25 11:34 Pulse Oximetry 97 04/26/25 11:34 Temperature 98.3 F 04/26/25 11:34 Pulse Rate 97 04/26/25 11:34 Respiratory Rate 16 04/26/25 11:34 Blood Pressure 116/66 04/26/25 11:34 Pulse Oximetry 97 04/26/25 11:34 Reviewed MDM - Skin/Abscess/Foreign Bdy MDM Narrative Medical decision making narrative: Appears patient has a rash likely related to the insect bite. Will prescribe prednisone. Advised patient to take Zyrtec daily for the next week. Discussed physical exam findings. Advised supportive measures and signs/symptoms to go to the ER. Pt is appropriate for outpt treatment and f/u. Differential Diagnosis Differential diagnosis: Likely viral exanthem, urticaria, cellulitis, eczema, insect bites and contact dermatitis Critical Care Time Critical Care Time Critical Care Time: No Discharge Plan Discharge Clinical Impression: Rash Patient Disposition: Home Condition: Stable Instructions: Acute Rash (ED) Additional Instructions: Take the prednisone as directed. Take it in the morning and take it with food. You may use calamine lotion or can for as needed for itchiness symptoms. Follow the instructions on the bottle. Take Zyrtec (cetirizine) 10 mg 1 tablet daily for the next week. You May use Benadryl as needed for itchiness symptoms as well, follow instructions on the bottle however Benadryl may make you drowsy so do not drive or operate machinery while taking Benadryl. Follow-up PCP in 3-5 days. If you develop any worsening redness, swelling, discharge, fevers, breathing problems, or any other concerns please go to the ER immediately. Patient Language: Swedish Prescriptions: New prednisone 20 mg tablet 40 mg PO DAILY 5 Days Qty: 10 0RF No Action amlodipine 10 mg tablet 10 mg PO DAILY enalapril maleate 20 mg tablet 20 mg PO Q24H ezetimibe 10 mg tablet 10 mg PO DAILY finasteride 5 mg tablet 5 mg PO DAILY levothyroxine 125 mcg tablet 125 mcg PO DAILY triamterene-hydrochlorothiazid 37.5-25 mg tablet 1 tablet PO DAILY tramadol 50 mg tablet 50 mg PO Q6H PRN (Reason: pain) Qty: 6 0RF Follow-up/Referrals: Jose,MD Sherman [Primary Care Provider] Time of Disposition: 11:42
== END 2025-04-26 11:49 | disposition home or self-care (01) ==
PROVIDERS: PCP Internal Medicine
DX: R21 Rash and other nonspecific skin eruption (principal); Z85.3 Personal history of malignant neoplasm of breast; Z85.528 Personal history of other malignant neoplasm of kidney; Z90.10 Acquired absence of unspecified breast and nipple; Z90.5 Acquired absence of kidney
CPT/HCPCS: 99213; G0463

== ENCOUNTER 2025-05-11 11:55 | Emergency (ER) | payer MEDICARE, SELFPAY ==
[2025-05-11 12:05] VITALS: BP 152/72; PULSE 86; RESP 16; TEMP 36.6; O2SAT 94
--- NOTE | 2025-05-11 12:39 | ED.SKABFB ---
HPI - Skin/Abscess/Foreign Bdy General Chief complaint: Skin/Abscess/Foreign Body Stated complaint: Rash Time Seen by Provider: 05/11/25 12:25 Source: patient, RN notes reviewed and old records reviewed Mode of arrival: ambulatory Limitations: no limitations History of Present Illness HPI narrative: 84 year old male presents to doctors hospital care with complaints of red raised itchy rash to bilateral forearm, on his face around his eyes and small area on upper chest area that is itchy for the past 2 days. Patient reports that he was her on the of the month for what he thought was a bug bite with rash to his right forearm and took 5 days of prednisone which resolved those symptoms. Patient states that he has been clearing brush and he thinks he may of come into contact with some poison kelley or oak. Patient denies any difficulty with his breathing or with swallowing. MD complaint: rash Onset (ago): day(s) (2) Location: face, chest, LUE and RUE Severity: moderate Quality: other (pruritic) Treatments prior to arrival: other (took 5 days of prednisone started on ) Related Data Home Medications ?Medication ?Instructions ?Recorded ?Confirmed ?Last Taken ?Type amlodipine 10 mg tablet 10 mg PO DAILY 04/26/25 04/26/25 Unknown History enalapril maleate 20 mg tablet 20 mg PO Q24H 04/26/25 04/26/25 Unknown History ezetimibe 10 mg tablet 10 mg PO DAILY 04/26/25 04/26/25 Unknown History finasteride 5 mg tablet 5 mg PO DAILY 04/26/25 04/26/25 Unknown History levothyroxine 125 mcg tablet 125 mcg PO DAILY 04/26/25 04/26/25 Unknown History triamterene 37.5 1 tablet PO DAILY 04/26/25 04/26/25 Unknown History mg-hydrochlorothiazide 25 mg tablet Allergies Allergy/AdvReac Type Severity Reaction Status Date / Time levofloxacin Allergy Mild Rash Verified 05/11/25 12:43 latex Allergy Unknown Rash Verified 05/11/25 12:43 Review of Systems Review of Systems: CONSTITUTIONAL: Denies fever, chills, or sweats. CARDIOVASCULAR: Denies chest pain, palpitations, or edema. RESPIRATORY: Denies cough or dyspnea. SKIN: Reports rash to bilateral arms, on face around eyes and small area to upper chest neck area, states is itchy. MUSCULOSKELETAL: Denies joint pain or myalgia. NEUROLOGIC: Denies headache, numbness, or weakness. All systems reviewed & are unremarkable except as noted in HPI and below PMFSH Past Medical History Medical History Skin cancer Hypothyroidism Hypertension Breast cancer, male Kidney stone Renal cancer Surgical History Surgical History H/O partial nephrectomy H/O mastectomy Social History Social History Smoking status: Never smoker Alcohol intake: never Substance use: never Living arrangements: alone Comments At time of signature, agree with nursing past medical, surgical, social and family history. There is no relevant family history pertinent to the presenting complaint Exam Narrative: GENERAL: Well-appearing, well-nourished, and in no acute distress. HEAD: Normocephalic, atraumatic. EYES: PERRLA, conjunctivae clear, and EOMI.red itchy rash to face and around eyes denies any visual changes. ENT: Mucous membranes moist. Oropharynx without edema, erythema or lesions. NECK: Supple. No lymphadenopathy CHEST: Clear to auscultation. No respiratory distress. no cough noted SAO2 94% on room air HEART: Regular rate and rhythm. SKIN: Warm, dry.? Patches of raised erythema on bilateral arms, face around eyes and small patch on his chest which is itchy NEURO:? Alert and oriented x3. PSYCH: Normal mood and affect Course Course Emergency Course: Patient is aware of diagnosis, understands and agrees to treatment plan.? Anticipatory guidance given.? Patient agrees to follow-up as directed and is aware of reasons to seek care at the emergency department. Portions of this record may have been created with voice recognition software Level of Care: Express Care Visit Vital Signs Vital signs: Vital Signs Temperature 36.6 C 05/11/25 12:05 Pulse Rate 86 05/11/25 12:05 Respiratory Rate 16 05/11/25 12:05 Blood Pressure 152/72 H 05/11/25 12:05 Pulse Oximetry 94 05/11/25 12:05 Temperature 36.6 C 05/11/25 12:05 Pulse Rate 86 05/11/25 12:05 Respiratory Rate 16 05/11/25 12:05 Blood Pressure 152/72 H 05/11/25 12:05 Pulse Oximetry 94 05/11/25 12:05 Reviewed MDM - Skin/Abscess/Foreign Bdy MDM Narrative Medical decision making narrative: Does not appear at this time to be erythema multiforme, bullous, SJS, TEN; no evidence at this time to suggest RMSF, endocarditis or Lyme disease; patient looks well, nontoxic and is tolerating oral intake; no neurologic signs or symptoms; no headache, photophobia or neck pain; afebrile; appropriate for initial outpatient treatment; discussed the importance of follow-up, patient agrees; question, viral exanthema, contact dermatitis, allergic dermatitis, eczema, urticaria.. No soft palate or uvula edema, no tongue, lip edema or other mucosal involvement, no respiratory compromise, no stridor, no wheezing, no wheezing, no history of syncope, no hypotension, no nausea, vomiting, or diarrhea.? Instructed patient to go to nearest ER immediately for any worsening symptoms including but not limited to: fever, spreading rash, pain, sore throat, headache, dizziness, chest pain, trouble breathing, or any symptoms concerning to the patient. Patient received injection of Depo-Medrol 80mg IM while in clinic with no raction. Differential Diagnosis Differential diagnosis: Likely abscess of skin or subcutaneous tissue, urticaria, cellulitis, contact dermatitis and other (acute rash which is pruritic) Medical Records Attestation: I reviewed the patient's medical records. Critical Care Time Critical Care Time Critical Care Time: No Discharge Plan Discharge Clinical Impression: Contact dermatitis Qualifiers: Contact dermatitis type: allergic Contact dermatitis trigger: non-food plants Qualified Code(s): L23.7 - Allergic contact dermatitis due to plants, except food Patient Disposition: Home Condition: Stable Instructions: Contact Dermatitis (ED) Additional Instructions: Apply triamcinolone ointment to rash on arms twice daily never apply this to the face, ue hydrocortisone ointment to face watch for increasing infection--redness, swelling, drainage Tylenol for any fever or pain Pepcid daily for the next 10 days Zyrtec daily for the next 10 days follow up with PCP in 7-10 days for a wound check recheck if develop fever, chills, increasing symptom Go to the ER if your symptoms become worse of if ANY new symptoms develop If no improvement in rash in 72 hours follow up with your PCP or go to ED for further evaluation If your symptoms persist, change or worsen significantly before you can contact your personal physician then please, without delay, go to the emergency department for further evaluation. Follow-up with PCP in 7-10 days or sooner if needed Follow up with PCP soon in regards to your blood pressure which is elevated above threshold for referral. Blood pressure above 120/80 may indicate pre-hypertension. 152/72 Patient Language: Hong Konger Prescriptions: New prednisone 10 mg tablet 10 mg PO DIRECTED Qty: 21 0RF Rx Instructions: see taper instructions 6 tabs day 1, 5 tabs day 2, 4 tabs day 3, 3 tabs day 4, 2 tabs day 5, 1 tab day 6 take all of prescription taken a.m. with food triamcinolone acetonide 0.1 % ointment 1 applic topical BID Qty: 80 0RF Rx Instructions: apply to arms twice daily for itching, never use this on the face famotidine [Pepcid] 20 mg tablet 20 mg PO DAILY Qty: 10 0RF No Action amlodipine 10 mg tablet 10 mg PO DAILY enalapril maleate 20 mg tablet 20 mg PO Q24H ezetimibe 10 mg tablet 10 mg PO DAILY finasteride 5 mg tablet 5 mg PO DAILY levothyroxine 125 mcg tablet 125 mcg PO DAILY triamterene-hydrochlorothiazid 37.5-25 mg tablet 1 tablet PO DAILY tramadol 50 mg tablet 50 mg PO Q6H PRN (Reason: pain) Qty: 6 0RF Follow-up/Referrals: Jose,MD Sherman [Primary Care Provider] Time of Disposition: 13:00 Quality Kenneth Coma Scale Eyes: Open Verbal: Oriented and Alert Motor: Follows Commands Creighton Coma Total Score: 15
[2025-05-11] MEDS: methylPREDNISolone ACETATE 80 MG/ML VIAL IM (12:59)
== END 2025-05-11 13:11 | disposition home or self-care (01) ==
PROVIDERS: Emergency Provider Registered Nurse; PCP Internal Medicine
DX: L23.7 Allergic contact dermatitis due to plants, except food (principal); I10 Essential (primary) hypertension; E03.9 Hypothyroidism, unspecified; Z85.828 Personal history of other malignant neoplasm of skin; Z85.3 Personal history of malignant neoplasm of breast; Z85.528 Personal history of other malignant neoplasm of kidney; Z90.5 Acquired absence of kidney; Z90.10 Acquired absence of unspecified breast and nipple
CPT/HCPCS: 96372; 99213; G0463; J1010